=== PATIENT | male | born 1975 | race Caucasian/White ===

== ENCOUNTER 2021-03-23 00:32 | Day surgery (SDC) | payer OTHER, SELFPAY ==
[2021-03-16 10:34] VITALS: BMI 25.6
--- NOTE | 2021-03-16 10:40 | PC.NURSE ---
Report to the Outpatient Waiting Room, entrance under the green pavilion located off [facility], at time 0830 on date 03/23/21. OR Time: 1030. - You will be asked a series of questions to screen for COVID 19 for your protection. - A mask is required within the hospital. - No visitors are allowed at this time. Preoperative COVID Testing Requirements: No COVID Test needed if: (proof is required; if not received patient will have Rapid Test prior to entry) - Patient has received COVID Vaccine at least 14 days prior to procedure date or - Patient has positive COVID test result within last 90 days of surgery date. COVID Test needed if above criteria is not met Patients may have clear liquids (water, carbonated beverages, clear teas, apple juice) until 3 hours prior to surgery with a maximum of 20 ounces. - No food from midnight until time of surgery Take the following medications with a SIP of water the morning of surgery: NONE Medications to discontinue per physician: N/A Date to take last dose: N/A Please no make-up, nail azeri, hairspray, perfume, deodorant, or body powder the day of surgery. No jewelry (including any body piercings) or valuables the day of surgery, leave them at home. Please take a shower or bath the night before, or the morning of, surgery with an antibacterial soap. Wear comfortable, loose fitting clothing. - Jewelry must be removed prior to entering the operating room. Rings and piercings that are not removed may be cut off. - The hospital will not accept responsibility for valuables. - Please leave all valuables, including medications, at home the day of surgery. If you are going home after surgery, a licensed pile driver engineer must drive you home. - NO public transportation without another adult. - We recommend that an adult stay with you for 24 hours following discharge. - We also recommend that you do not drive, make important decision, drink alcoholic beverages, or take any drugs that were not prescribed by your health care provider for at least 24 hours after your discharge time. Follow any additional instructions given to you from your surgeon. Telephone instructions given to MARLA GOLDEN and asked if any additional questions and then verbalized understanding. Patient advised to call surgeon office or pre surgery nurse liaison [phone] if any additional questions.
[2021-03-23] VITALS (8 sets, daily range): BP systolic 119–150; BP diastolic 64–96; PULSE 71–91; RESP 14–18; TEMP 36.3–37.1; O2SAT 93–99
--- NOTE | 2021-03-23 07:08 | PM.SD2 ---
Same Day Admit/Disch: HPI History of Present Illness Chief complaint: Lt Ing Hernia Narrative: Vikram Finn is a 45 year old male who moved back to this area in May of 2020. This of course required a lot of moving of heavy boxes and furniture. Soon after the move, he started noticing a bulge in the left groin. This has been persistent and is occasionally painful. He was seen in the office and found to have a left inguinal hernia. He is taken to surgery now for left inguinal hernia repair. [facility] Past Medical History Medical History High cholesterol Surgical History Surgical History History of removal of cyst 2010, Anup History of surgery on wrist 2004, [facility], [facility] Family History Family History Father Liver failure Social History Social History Smoking status: Never smoker Tobacco type: cigarettes Alcohol intake: current Drinks per week: 4 Alcohol use details: Socially Substance use: never Substance use type: does not use Living arrangements: with family Spiritual care concerns: No Same Day Admit/Disch: Med Pre-admit Medications Home Medications Medication Instructions Recorded Confirmed Type hydrocodone-acetaminophen 1 - 2 tablet PO Q6H PRN #10 tablet 03/23/21 Rx ketorolac 10 mg PO Q6H 4 Days #16 tablet 03/23/21 Rx Exam Const: General: comfortable, no acute distress, alert and awake HENMT: Head: normocephalic and atraumatic Mouth: Yes Normal oral and palatal mucosa present Eyes: Conjunctivae: conjunctivae normal Pupils: Equal, round and reactive pupils present EOM: EOMs intact bilaterally Neck: Neck: normal visual inspection, no lymphadenopathy and nontender Resp: Effort & Inspection: normal respiratory effort Auscultation: clear to auscultation bilaterally Cardio: Rate: regular rate Rhythm: regular rhythm Heart sounds: no gallops, no murmurs and no rubs GI: Inspection: non-distended GI Palp: Yes Soft to palpation, No Tenderness to palpation present (GI), No Hepatomegaly present and No Splenomegaly present : Male General Exam: Yes hernia ( Reducible left inguinal hernia, rib bulges with cough. No right inguinal) Penis: Yes normal penis Scrotum: scrotum normal Testes: Testes normal Skin: Lesions: no lesions Rashes: no rashes Neuro: General: no focal motor deficits and CN's II-XI intact bilaterally Cranial nerves: Yes Equal, round and reactive pupils present, Yes Bilaterally intact EOM present, Yes facial symmetry and Yes Midline tongue present Speech: normal speech Motor exam (neuro): 5/5 motor strength present throughout and Motor abnormalities not present Extrem: General: no clubbing, cyanosis or edema and edema Psych: Affect: normal affect Thought process: Normal thought process present Insight: Good insight present (Psych) DS: Summary Time Spent with Patient Time attestation: Total time spent providing and/or coordinating discharge services: DS: Admitting Diagnosis Discharge Date 03/23/2021 Admitting Diagnosis reducible left inguinal hernia -plan is to proceed with repair as an outpatient most likely using mesh. The procedure the risks the benefits have been discussed. The usual recovery has been discussed. All questions were answered. He understands and agrees to go ahead. DS: Discharge Diagnosis Discharge Diagnosis (1) Inguinal hernia without obstruction or gangrene: Code(s): K40.90 - Unilateral inguinal hernia, without obstruction or gangrene, not specified as recurrent Status: Chronic Discharge Plan Discharge Patient Disposition: Home, Self-Care Discharge Instructions: 1. May shower the day after surgery over incision. 2. Call office for: -Wound increasingly painful or b
--- NOTE | 2021-03-23 07:11 | WPDHPUPDATE1 ---
History and Physical Update Update Date/Time: 03/23/21 07:11 History and Physical has been reviewed, including an updated exam of the patient. There are NO changes in the patient's condition. Risks, benefits, and alternatives have been discussed and questions answered. Patient agrees to proceed with procedure.
--- NOTE | 2021-03-23 07:30 | WPDANESEPPF ---
Anes - Initial Pre Proc Eval Procedure: Operation Date: 03/23/21 10:30 Proposed Procedures p Left Inguinal Hernia Repair - Blu Cox MD Date/Time: 03/23/21 07:30 Surgeon: Blu Cox MD Pre Op Diagnosis: Lt Ing Hernia Patient Data Age: 45 Gender: M Height: 1.85 m Weight: 88 kg Allergies Allergy/AdvReac Type Severity Reaction Status Date / Time No Known Allergies Allergy Verified 03/16/21 10:33 Home Medications Medication Instructions Recorded Confirmed Type No Home Medications 01/31/21 03/16/21 History Patient hx anesthesia problems: none Family hx anesthesia problems: none Results Review: All pre-operative results and documents have been reviewed as part of the pre-operative evaluation. [facility] Past Medical History Medical History High cholesterol Surgical History Surgical History History of removal of cyst 2010, Anup History of surgery [facility] wrist [facility], [facility] Family History Family History Father Liver failure Social History Social History Smoking status: Never smoker Tobacco type: cigarettes Alcohol intake: current Drinks per week: 4 Alcohol use details: Socially Substance use: never Substance use type: does not use Living arrangements: with family Spiritual care concerns: No Anes - Eval Final PreProcedure Day of Procedure 03/23/21 07:30 Patient weight: overweight Heart: regular rate and rhythm Lungs: clear to auscultation and normal air movement Airway: Mallampati scale class II Neurological: alert and oriented Last oral intake: >/= 8 hours ASA classification: II Emergent: no Anesthetic plan: proceed Anesthesia type and monitoring: general GIVS and standard monitoring Results Review: All pre-operative results and documents have been reviewed as part of the pre-operative evaluation. Informed Consent: The patient's anesthetic plan and its attendant risks and benefits were discussed with the patient/family/POA. Questions were solicited and answers provided to the satisfaction of the patient/family/POA.
[2021-03-23] MEDS: ACETAMINOPHEN 500 MG TABLET 1000 MG PO (09:19)
[2021-03-23] MEDS: KETOROLAC 15 MG/ML VIAL (*BKC) IV PUSH (09:19)
[2021-03-23] MEDS: LACTATED RINGERS 1,000 ML 30 ML IV CONT ×2 (09:21→11:53)
[2021-03-23] MEDS: ceFAZolin 2 GM/D5W 50 ML 2 GM/50 ML BAG IVPB (10:27)
--- NOTE | 2021-03-23 10:29 | P.OP_ITS ---
Procedure Note - Detailed Date of Procedure 03/23/21 Pre-op Diagnosis Lt Ing Hernia Post-op Diagnosis same Procedure Performed Left inguinal hernia repair with mesh Surgeon Blu Cox MD Staffing Branch Manager Luna CORLEY Anesthesia MAC and local (0.5% Marcaine with epinephrine, Xaracoll) Indications Patient noticed discomfort and a bulge in the left groin after moving to a new residence. He was seen in the office and found to have a reducible left inguinal hernia. He is taken to surgery now for repair. Findings Indirect left inguinal hernia Description of Procedure Patient was taken to surgery and IV sedation was administered. Prep and drape was carried out. The proposed incision was marked on the skin. Local was infiltrated into the skin and the deeper subcutaneous tissues. Incision was then made dissection was carried down through the subcutaneous. Crossing veins were cauterized and divided. Dissection continued through Verena's fascia and down to the external oblique aponeurosis. The aponeurosis was exposed as was the external ring. Additional local was infiltrated deep to the aponeurosis in the area of the spermatic cord and inguinal canal contents. The external oblique aponeurosis was then opened laterally and extended medially through the external ring. Care was taken to avoid injury to the ileoinguinal nerve which was left attached to the spermatic cord throughout the surgery. The leaves of the aponeurosis were carefully freed from the inguinal canal contents. The cord was then mobilized medially on a Midnight drain. The cord was then dissected back toward the internal ring mobilizing it completely. Dissection was then carried out near the internal ring in the anteromedial aspect of the spermatic cord. Hernia sac was found and was dissected free from the spermatic cord. The hernia sac was dissected circumferentially. It was dissected back to a high dissection. It was dunked into the retroperitoneum. This was an indirect herni a. A large PerFix Light plug was used. A couple of pedals were removed before placement. The plug was placed and sutured to the edges of the transversalis fascia with 3-0 Vicryl suture. The patch was cut to the appropriate size and placed over the inguinal canal floor. The lateral leaves were passed beyond the cord. I then placed Xaracoll over the patch. The cord was laid over the Xaracoll. The external oblique was closed with interrupted 3-0 Vicryl suture. More Xaracoll was placed over the external oblique. Verena's fascia was closed with interrupted 3-0 Vicryl suture. The rest of the Xaracoll was then placed in the subcutaneous. The skin was loosely approximated with 4-0 Vicryl subcuticular interrupted skin suture. Finally the skin was closed with running 4-0 Monocryl skin suture. The wound was dressed with Exofin surgical adhesive. The patient was awakened and taken to recovery in good condition. Sponge and needle counts were correct x2. Implants Large PerFix Light plug and patch, Xaracoll Estimated Blood Loss -5 Drains No Packing No Pathology none sent Complications No immediate complications Condition stable Disposition same day
[2021-03-23] MEDS: BUPIVACAINE/EPINEPHRINE 0.5% 30 ML VIAL 60 ML INFILTRATE (11:43)
--- NOTE | 2021-03-23 16:37 | SUR.PHASEII ---
PT URINATED AT 1300. NO ISSUE AND DISCHARGED HOME.
== END 2021-03-23 13:40 | disposition home or self-care (01) ==
PROVIDERS: Visit Provider Surgery
PROC: (CPT 49505; principal; 2021-03-23 10:30)
DX: K40.90 Unilateral inguinal hernia, without obstruction or gangrene, not specified as recurrent (principal)
CPT/HCPCS: 49505; A9270; C1781; J0690; J1100; J1170; J1885; J2250; J2405; J2704; J3010; J7120

== ENCOUNTER 2021-10-21 00:34 | Day surgery (SDC) | payer OTHER, SELFPAY ==
[2021-10-10 14:54] VITALS: BMI 24.1
[2021-10-21 06:45] VITALS: BP 148/92; PULSE 84; RESP 16; TEMP 36.3; O2SAT 100
[2021-10-21] MEDS: LACTATED RINGERS 1,000 ML 150 ML IV CONT (07:00)
[2021-10-21 07:18] LABS: Glucose Point of Care 157 mg/dl (65-105)
--- NOTE | 2021-10-21 07:50 | PM.HPGS ---
History of Present Illness History of Present Illness Consent: Risks, benefits, and alternatives have been discussed and questions answered. Patient agrees to proceed with procedure. Chief complaint: neoplasm screening Narrative: Vikram Finn is a 46 year old male here for first screening colonoscopy Review of Systems Constitutional: Constitutional: Denies headache(s) and Denies weakness Eyes: Eyes: Denies blurry vision ENT: Reports Normal hearing present, Denies headache(s) and Denies neck pain Cardiovascular: Cardiovascular: Denies chest pain and Denies dyspnea Respiratory: Respiratory: Denies dyspnea Gastrointestinal: Gastrointestinal: Reports no additional gastrointestinal complaints Genitourinary: Genitourinary: Denies dysuria Musculoskeletal: Musculoskeletal: Denies neck pain Integumentary/Breasts: Skin/Breast: Denies dry skin Neurologic: Reports Normal hearing present, Denies headache(s) and Denies weakness Psychiatric: Psychiatric: Denies anxiety Endocrine: Endocrine: Denies change in body appearance Hematologic/Lymphatic: Hematologic/Lymphatic: Denies easy bleeding Allergic/Immunologic: Allergic/Immunologic: Denies urticaria [facility] Past Medical History Medical History (Updated 10/21/21 @ 07:50 by Adebayo Olmos MD) Colon cancer screening High cholesterol Surgical History Surgical History (Updated 04/25/21 @ 14:30 by Esha Dangelo) H/O inguinal hernia repair left inguinal hernia repair w/mesh 03/23/21 History of removal of cyst 2010, Anup History of surgery on wrist 2004, [facility] Family History Family History Father Liver failure Social History Social History Smoking status: Never smoker Tobacco type: cigarettes Alcohol intake: current Drinks per week: 4 Alcohol use details: Socially Substance use: never Substance use type: does not use Living arrangements: with family Spiritual care concerns: No Meds Home Medications and Allergies Home Medications Medication Instructions Recorded Confirmed Type sodium sul 1.479 gram-potas ch See Rx Instructions PO .COMPLEX 07/13/21 10/10/21 Rx 0.188 gram-magnes sul 0.225 gram #24 tabs tablet (Sutab) metformin 500 mg tablet 500 mg PO DAILY 10/10/21 10/10/21 History rosuvastatin 40 mg tablet 40 mg PO DAILY 10/10/21 10/10/21 History Allergies Allergy/AdvReac Type Severity Reaction Status Date / Time No Known Allergies Allergy Verified 04/25/21 14:28 Vital Signs Vital Signs - 24 hr 10/21/21 06:45 Temperature 97.4 F L Pulse Rate 84 Respiratory Rate 16 Blood Pressure 148/92 H Pulse Oximetry 100 Oxygen Delivery Room Air Exam Const: General: comfortable and no acute distress HENMT: General nose exam: Normal nares present Eyes: General: appearance normal, both eyes and all related structures Neck: Neck: no JVD Resp: Auscultation: clear to auscultation bilaterally Cardio: Rate: regular rate Rhythm: regular rhythm GI: Inspection: non-distended GI Palp: Yes Soft to palpation Skin: General skin exam: normal color Neuro: General: gait normal Speech: normal speech Extrem: General: normal to inspection Psych: Mental Status: mental status grossly normal Assessment and Plan Assessment and plan (1) Colon cancer screening: Code(s): Z12.11 - Encounter for screening for malignant neoplasm of colon Status: Acute Assessment and Plan: colonoscopy
--- NOTE | 2021-10-21 07:52 | P.PNAN_ITS ---
Anes - Initial Pre Proc Eval Procedure: Operation Date: 10/21/21 08:00 Proposed Procedures p Screening Colonoscopy - Adebayo Olmos MD Date/Time: 10/21/21 07:52 Surgeon: Adebayo Olmos MD Pre Op Diagnosis: neoplasm screening Patient Data Age: 46 Gender: M Height: 1.85 m Weight: 83 kg Last Vital Signs Temp 97.4 F L 10/21/21 06:45 Pulse 84 10/21/21 06:45 Resp 16 10/21/21 06:45 BP 148/92 H 10/21/21 06:45 Pulse Ox 100 10/21/21 06:45 O2 Del Method Room Air 10/21/21 06:45 Allergies Allergy/AdvReac Type Severity Reaction Status Date / Time No Known Allergies Allergy Verified 04/25/21 14:28 Home Medications Medication Instructions Recorded Confirmed Type sodium sul 1.479 gram-potas ch See Rx Instructions PO .COMPLEX 07/13/21 10/10/21 Rx 0.188 gram-magnes sul 0.225 gram #24 tabs tablet (Sutab) metformin 500 mg tablet 500 mg PO DAILY 10/10/21 10/10/21 History rosuvastatin 40 mg tablet 40 mg PO DAILY 10/10/21 10/10/21 History Laboratory Tests 10/21/21 07:04 POC Capillary Glucose 157 mg/dl H mg/dl (65-105) Patient hx anesthesia problems: none Family hx anesthesia problems: none Results Review: All pre-operative results and documents have been reviewed as part of the pre- operative evaluation. [facility] Past Medical History Medical History (Updated 10/21/21 @ 07:50 by Adebayo Olmos MD) Colon cancer screening High cholesterol Surgical History Surgical History (Updated 04/25/21 @ 14:30 by Esha Dangelo) H/O inguinal hernia repair left inguinal hernia repair w/mesh 03/23/21 History of removal of cyst 2010, Anup History of surgery on wrist 2004, [facility] Family History Family History Father Liver failure Social History Social History Smoking status: Never smoker Tobacco type: cigarettes Alcohol intake: current Drinks per week: 4 Alcohol use details: Socially Substance use: never Substance use type: does not use Living arrangements: with family Spiritual care concerns: No Anes - Eval Final PreProcedure Day of Procedure 10/21/21 07:52 Patient weight: normal Heart: regular rate and rhythm Lungs: clear to auscultation Airway: Mallampati scale class II Neurological: alert and oriented Last oral intake: >/= 8 hours ASA classification: II Emergent: no Anesthetic plan: proceed Anesthesia type and monitoring: general GIVS and standard monitoring Results Review: All pre-operative results and documents have been reviewed as part of the pre- operative evaluation. Informed Consent: The patient's anesthetic plan and its attendant risks and benefits were discussed with the patient/family/POA. Questions were solicited and answers provided to the satisfaction of the patient/family/POA.
[2021-10-21 08:08] VITALS: BP 127/88; PULSE 75; RESP 14; O2SAT 99
[2021-10-21 08:18] VITALS: BP 136/94; PULSE 60; RESP 13; O2SAT 99
[2021-10-21 08:28] VITALS: BP 140/90; PULSE 70; RESP 16; O2SAT 99
== END 2021-10-21 08:35 | disposition home or self-care (01) ==
PROVIDERS: PCP Family Medicine; Visit Provider Internal Medicine Gastroenterology
PROC: 0DJD8ZZ Inspection of Lower Intestinal Tract, Via Natural or Artificial Opening Endoscopic (ICD-10-PCS; CPT 45378; principal; 2021-10-21 08:00)
DX: Z12.11 Encounter for screening for malignant neoplasm of colon (principal); E78.00 Pure hypercholesterolemia, unspecified; K64.8 Other hemorrhoids
CPT/HCPCS: 45378; 82948; J2704; J7120

== ENCOUNTER 2021-12-19 09:15 | Outpatient (RCR) | payer OTHER, SELFPAY ==
[2021-10-18 14:05] VITALS: BMI 24.1
[2021-10-18 14:48] VITALS: BMI 24.1
== END 2022-01-02 09:53 | disposition home or self-care (01) ==
LOC: ANHDMC 09:15
PROVIDERS: PCP Family Medicine; Visit Provider Nurse Practitioner
DX: E11.65 Type 2 diabetes mellitus with hyperglycemia (principal); Z71.3 Dietary counseling and surveillance; Z71.89 Other specified counseling
CPT/HCPCS: 97802; G0108

== ENCOUNTER 2022-02-21 12:55 | Outpatient (RCR) | payer OTHER, SELFPAY | END 2022-02-21 14:23 | disposition home or self-care (01) | LOC: ANHDMC 12:55 | PROVIDERS: PCP Family Medicine; Visit Provider Nurse Practitioner | DX: E11.65 Type 2 diabetes mellitus with hyperglycemia (principal); Z71.89 Other specified counseling | CPT/HCPCS: G0108 ==

== ENCOUNTER 2024-07-27 07:24 | Emergency (ER) | payer OTHER, SELFPAY ==
--- NOTE | ~2024-07-27 | XR_ITS ---
Left wrist Technique: PA, oblique, lateral, and ulnar deviation views were obtained. Clinical History: Injury Findings: Status post prior ORIF for scaphoid fracture. There is acute intra-articular fracture of th e radial styloid process, essentially nondisplaced. No other fracture identified. There is mild degen erative change at the first CMC joint and triscaphe joint. Soft tissues are unremarkable. Impression: Acute, essentially nondisplaced intra-articular fracture of the radial styloid process. Prior scaphoid ORIF. Mild degenerative changes, as above. Reviewed, dictated and finalized at location . Impression: Acute, essentially nondisplaced intra-articular fracture of the radial styloid process. Prior scaphoid ORIF. Mild degenerative changes, as above.
[2024-07-27 07:27] VITALS: BP 159/96; PULSE 82; RESP 17; TEMP 36.4; O2SAT 97
--- OUTSIDE RECORDS SUMMARY | 2024-07-27 07:27 | XMS_ITS | Data Portability ---
Author Organization [facility], Main Office Address [address] [place] [address] Assessment No assessment recorded. Plan of Treatment Reminders Order Date Submit Date Provider Last Modified By Organization Details Last Modified Time Details Appointments Physical/ Annual Wellness 30 2024 07:30A Radha Wren NP Not available Not available Not available Lab lipid panel, serum 2023 024 [email or web address] [facility], [address], [address], [place], [address], 10/11/2023 08:16:09 HbA1c (hemoglob in A1c), blood 2023 024 [email or web address] [facility], [address], [place], [address], 10/11/2023 08:16:09 CMP, serum or plasma 2023 024 [email or web address] [facility], [address], [place], [address], 10/11/2023 08:16:09 TSH, serum or plasma 2023 024 [email or web address] [facility], [address], [place], [address], 10/11/2023 08:16:10 CBC w/ auto diff 2023 024 [email or web address] [facility], [address], [place], [address], 10/11/2023 08:16:10 PSA, serum or plasma [email or web address], [address], [address], [place], [address], 10/11/2023 08:16:10 testoster one, free + total, serum [email or web address], [address], [address], [place], [address], 10/11/2023 08:16:10 HbA1c (hemoglob in A1c), blood 2022 023 [facility], [address], [address], [place], [address], 10/10/2022 15:09:18 CMP, serum or plasma 2022 023 [facility] [address], [address], [place], [address], 10/10/2022 15:09:15 microalbu min/creat inine, mass ratio, urine 2022 023 [facility], [facility] [address], [address], [place], [address], 07/21/2022 23:43:28 microalbu min/creat inine, mass ratio, urine 2022 023 [facility], [facility] [address], [address], [place], [address], 07/19/2022 14:55:08 JESSICA (antinucl ear antibodie s) screen, serum 2022 023 [facility], [facility] [address], [place], [address], 07/21/2022 23:43:30 rf (rheumato id factor), serum 2022 023 [facility], [address], [address], [place], [address], 07/21/2022 23:43:29 lipid panel, serum 2022 023 [facility], [address], [address], [place], [address], 10/10/2022 15:09:13 TSH + free T4, serum 2022 023 [facility], [address], [address], [place], [address], 10/10/2022 15:09:17 Referral cardiolog ist referral - Please call patient to schedule an appointme nt. Thank you. [email or web address] [place] [address] Heart And Vascular Referral Fax Line, [address], [place] [address] [address], [place], [address], 12/12/2023 09:12:30 Procedures None recorded. Surgeries None recorded. Imaging None recorded. Medication Orders metformin ER 500 mg tablet,ex tended release 24 hr 2024 025 [facility] [address] [facility], [address] [place], [address], 07/14/2024 08:46:00 Vascepa 1 gram capsule 2024 025 [facility] [address] In [facility], [address] [place], [address], 07/14/2024 08:46:02 rosuvasta tin 40 mg tablet 2024 025 [facility] [address] In [facility] [address] [place], [address], 07/14/2024 08:46:01 fenofibra te 54 mg tablet 2024 025 [facility] [address] In [facility] [address] [facility], [place], [address], 07/14/2024 08:46:01 OneTouch Ultra Test strips 2024 025 [facility]LEY[facility] ALVAREZ [address] In [facility], [address] [place], [address], 07/14/2024 08:46:00 sertralin e 25 mg tablet 2024 025 [facility] KIM [address] In [facility], [address] [place], [address], 07/14/2024 08:46:01 metformin ER 500 mg tablet,ex tended release 24 hr 2023 024 [facility]VARE[facility] [address], [address], 11/14/2023 11:23:57 fenofibra te 54 mg tablet 2023 024 [facility] K[facility] [address] In [facility], [facility] [place], [address], 11/14/2023 11:23:57 rosuvasta tin 40 mg tablet 2022 023 [facility]VARE[facility] [address] In [facility], [address] [facility], [place], [address], 10/20/2022 14:11:32 Vascepa 1 gram capsule 2022 023 [facility] K[facility] [address] In [facility], [address] [place], [address], 10/20/2022 14:11:32 metformin ER 500 mg tablet,ex tended release 24 hr 2022 023 [facility] KIM [address] In [facility], [address] [place], [address], 10/20/2022 14:11:32 Patient TargetsNo targets recorded. Patient InstructionsNo instructions recorded. Reason for Referral National Account Executive Referral for Hy pertriglyceridemia hypertriglyceridemia Please call patient to schedule an appointment. Thank you. Referring Physician: Juan Alberto Banks, Family Medicine, Encounter Date: 11/14/2023 Results Created Date Observation Date Name Description Value Unit Range Abnormal Flag Note LastModifiedBy Organization Detail LastModifiedTime 06/07/19 23 06/13/2022 COMPR EHENS REGINO METAB OLIC PANEL glucose 113 mg/dL 65-99 high Fasti ng refer ence inter verito For someo ne witho ut known diabe pineda, a gluco se value betwe en 100 and 125 mg/dL is consi stent with predi abete s and shoul d be confi rmed with a follo w-up test. Not Available [address], [address], 06/14/2022 00:45:21 06/07/19 23 06/13/2022 COMPR EHENS REGINO METAB OLIC PANEL urea nitrogen (BUN) 12 mg/dL 7-25 normal Not Available [facility] [address], [address], 06/14/2022 00:45:21 06/07/19 23 06/13/2022 COMPR EHENS REGINO METAB OLIC PANEL creatinine 0.81 mg/dL 0.60-1 .29 normal Not Available [address], [address], 06/14/2022 00:45:21 06/07/19 23 06/13/2022 COMPR EHENS REGINO METAB OLIC PANEL eGFR 109 mL/mi n/1.7 3m2 > or = 60 normal The eGFR is based on the CKD-E PI 2020 equat ion. To calcu late the new eGFR from a previ ous Creat inine or Cysta glenn C resul t, go to https ://daniel [email or web address] ogden/meri murphy s/ kdoqi /gfr% 5Fcal culat or Not Available [facility] [address] [address] [place], [address], 06/14/2022 00:45:21 06/07/19 23 06/13/2022 COMPR EHENS REGINO METAB OLIC PANEL BUN/creatini ne ratio NOT APPLIC ABLE (calc ) 6-22 Not Available [address], [address], 06/14/2022 00:45:21 06/07/19 23 06/13/2022 COMPR EHENS REGINO METAB OLIC PANEL sodium 136 mmol/ L 135-14 6 normal Not Available [address], [address], 06/14/2022 00:45:21 06/07/19 23 06/13/2022 COMPR EHENS REGINO METAB OLIC PANEL potassium 4.1 mmol/ L 3.5-5. 3 normal Not Available [address], [address], 06/14/2022 00:45:21 06/07/19 23 06/13/2022 COMPR EHENS REGINO METAB OLIC PANEL chloride 100 mmol/ L 98-110 normal Not Available [address], [address], 06/14/2022 00:45:21 06/07/19 23 06/13/2022 COMPR EHENS REGINO METAB OLIC PANEL carbon dioxide 20 mmol/ L 20-32 normal Not Available [address], [address], 06/14/2022 00:45:21 06/07/19 23 06/13/2022 COMPR EHENS REGINO METAB OLIC PANEL calcium 9.7 mg/dL 8.6-10 .3 normal Not Available [address], [address], 06/14/2022 00:45:21 06/07/19 23 06/13/2022 COMPR EHENS REGINO METAB OLIC PANEL protein, total 7.5 g/dL 6.1-8. 1 normal Not Available [address], [address], 06/14/2022 00:45:21 06/07/19 23 06/13/2022 COMPR EHENS REGINO METAB OLIC PANEL albumin 5.1 g/dL 3.6-5. 1 normal Not Available [address], [address], 06/14/2022 00:45:21 06/07/19 23 06/13/2022 COMPR EHENS REGINO METAB OLIC PANEL globulin 2.4 g/dL_ (calc ) 1.9-3. 7 normal Not Available [address], [address], 06/14/2022 00:45:21 06/07/19 23 06/13/2022 COMPR EHENS REGINO METAB OLIC PANEL albumin/glob ulin ratio 2.1 (calc ) 1.0-2. 5 normal Not Available [address], [address], 06/14/2022 00:45:21 06/07/19 23 06/13/2022 COMPR EHENS REGINO METAB OLIC PANEL bilirubin, total 0.8 mg/dL 0.2-1. 2 normal Not Available [address], [address], 06/14/2022 00:45:21 06/07/19 23 06/13/2022 COMPR EHENS REGINO METAB OLIC PANEL alkaline phosphatase 65 U/L 36-130 normal Not Available [facility] [address], [address], 06/14/2022 00:45:21 06/07/19 23 06/13/2022 COMPR EHENS REGINO METAB OLIC PANEL AST 31 U/L 10-40 normal Not Available [address], [address], 06/14/2022 00:45:21 06/07/19 23 06/13/2022 COMPR EHENS REGINO METAB OLIC PANEL ALT 47 U/L 9-46 high Not Available [address], [address], 06/14/2022 00:45:21 06/07/19 23 06/13/2022 ALBUM IN, RANDO M URINE W/CRE ATINI NE creatinine, random urine 24 mg/dL 20-320 normal Not Available [address], [address], 06/14/2022 00:45:22 06/07/19 23 06/13/2022 ALBUM IN, RANDO M URINE W/CRE ATINI NE albumin, urine 6.8 mg/dL see note: normal Refer ence Range : Refer ence Range Not estab lishe d Not Available [address], [address], 06/14/2022 00:45:22 06/07/19 23 06/13/2022 ALBUM IN, RANDO M URINE W/CRE ATINI NE albumin/crea tinine ratio, random urine 283 mcg/m g_cre at <30 high The ADA defin es abnor malit ies in album in excre tion as follo ws: Album inuri a Categ ory Resul t (mcg/ mg creat inine ) Jammie l to Mildl y incre ased <30 Moder ately incre ased 30-29 9 Sever rebeca incre ased > OR = 300 The ADA recom mends that at least two of three speci mens colle cted withi n a 3-6 month perio d be abnor mal befor e consi guillermo g a patie nt to be withi n a diagn ostic categ ory. Not Available [address], [address], 06/14/2022 00:45:22 06/07/19 23 06/13/2022 TSH+F REE T4 TSH 1.50 mIU/L 0.40-4 .50 normal Not Available [facility] [address] [address] [place], [address], 06/14/2022 00:45:22 06/07/1906/13/2022 TSH+F REE T4 T4, free 1.0 NG/dL 0.8-1. 8 normal Not Available [facility] [address] [address] [place], [address], 06/14/2022 00:45:22 06/07/1906/13/2022 HEMOG LOBIN A1C hemoglobin A1C 6.0 %_of_ total _HGB <5.7 high For someo ne witho ut known diabe pineda, a hemog lobin A1c value betwe en 5.7% and 6.4% is consi stent with predi abete s and shoul d be confi rmed with a follo w-up test. For someo ne with known diabe pineda, a value <7% indic ates that their diabe pineda is well contr olled . A1c targe ts shoul d be indiv idual ized based on durat ion of diabe pineda, age, comor bid condi tions , and other consi derat ions. This assay resul t is consi stent with an incre ased risk of diabe pineda. Curre ntly, no conse nsus exist s regar ding use of hemog lobin A1c for diagn osis of diabe pineda for child ozzy. Not Available [facility] [address] [place], [address], 06/14/2022 00:45:23 06/07/1906/13/2022 LIPID PANEL W/REF L DIREC T LDL, CARDI O IQ(R) cholesterol, total 163 mg/dL <200 Not Available [facility] [address] [place], [address], 06/14/2022 00:45:23 04/25/20 23 06/13/2022 LIPID PANEL W/REF L DIREC T LDL, CARDI O IQ(R) HDL cholesterol 48 mg/dL >39 Not Available [facility] [address] [place], [address], 06/14/2022 00:45:23 06/07/19 23 06/13/2022 LIPID PANEL W/REF L DIREC T LDL, CARDI O IQ(R) triglyceride s 316 mg/dL <150 high If a non fasti ng speci men was colle cted, consi tabby repea t trigl yceri de testi ng on a fasti ng speci men if clini justin indic ated. Keagan perez et al. J of Clin. Lipid ol. 215; 9:129 -169. Not Available [facility] [address] [address], [place], [address], 06/14/2022 00:45:23 06/07/19 23 06/13/2022 LIPID PANEL W/REF L DIREC T LDL, CARDI O IQ(R) LDL-choleste rol 77 mg/dL _(pat c) <100 Roseann able range <100 mg/dL for prima ry preve ntion ; <70 mg/dL for patie nts with CHD or diabe tic patie nts with >= 2 CHD risk facto rs. LDL-C is now calcu lated using the [employer] calcu latio n, which is a valid ated novel metho d provi ding andrzej r accur acy than the Fried lupe equat ion in the estim ation of LDL-C . Shaista n SS et al. TAMI. 2013; 310(1 9): 2060- 2067 (http ://ed Neu Industriesati on.[employer]/f aq/FA Q164) LDL-C is now calcu lated using the [employer] calcu latio n, which is a valid ated novel metho d provi ding andrzej r accur acy than the Fried lupe equat ion in the estim ation of LDL-C . Shaista n SS et al. TAMI. 2013; 310(1 9): 2060- 2067 (http ://ed ucati on.Qu Marcie canaless. com/f aq/FA Q164) Not Available [address] [address] [place], [address], 06/14/2022 00:45:23 06/07/1906/13/2022 LIPID PANEL W/REF L DIREC T LDL, CARDI O IQ(R) chol/HDLC ratio 3.4 calc <3.6 Not Available [address] [address] [facility] [place], [address], 06/14/2022 00:45:23 06/07/19 23 06/13/2022 LIPID PANEL W/REF L DIREC T LDL, CARDI O IQ(R) non HDL cholesterol 115 mg/dL _(pat c) <130 For patie nts with diabe pineda plus 1 major ASCVD risk facto r, treat ing to a non-H DL-C goal of <100 mg/dL (LDL- C of <70 mg/dL ) is consi dered a thera peuti c optio n. For patie nts with diabe pineda plus 1 major ASCVD risk facto r, treat ing to a non-H DL-C goal of <100 mg/dL (LDL- C of <70 mg/dL ) is consi dered a thera peuti c optio n. Not Available [address] [address] [place], [address], 06/14/2022 00:45:23 07/12/19 23 07/21/2022 ALBUM IN, RANDO M URINE W/CRE ATINI NE creatinine, random urine 94 mg/dL 20-320 normal Not Available [address] [address] [facility] [place], [address], 07/21/2022 23:43:28 07/12/1907/21/2022 ALBUM IN, RANDO M URINE W/CRE ATINI NE albumin, urine 12.3 mg/dL see note: normal Refer ence Range : Refer ence Range Not estab lishe d Not Available [address] [address] [place], [address], 07/21/2022 23:43:28 07/12/19 23 07/21/2022 ALBUM IN, RANDO M URINE W/CRE ATINI NE albumin/crea tinine ratio, random urine 131 mcg/m g_cre at <30 high The ADA defin es abnor malit ies in album in excre tion as follo ws: Album inuri a Categ ory Resul t (mcg/ mg creat inine ) Jammie l to Mildl y incre ased <30 Moder ately incre ased 30-29 9 Sever rebeca incre ased > OR = 300 The ADA recom mends that at least two of three speci mens colle cted withi n a 3-6 month perio d be abnor mal befor e consi guillermo g a patie nt to be withi n a diagn ostic categ ory. Not Available [facility] [address], [address], 07/21/2022 23:43:28 07/12/19 23 07/21/2022 RHEUM ATOID ARTHR ITIS DIAGN OSTIC IDENT RA(R) PANEL 2 rheumatoid factor <14 IU/mL <14 Not Available [facility] [address], [address], 07/21/2022 23:43:29 07/12/19 23 07/21/2022 RHEUM ATOID ARTHR ITIS DIAGN OSTIC IDENT RA(R) PANEL 2 cyclic citrullinate d peptide (ccp) Ab (IgG) <16 units Refer ence Range : NEGAT REGINO: <20 WEAK POSIT REGINO: 20-39 MODER ATE POSIT REGINO: 40-59 STRON G POSIT REGINO >59 Not Available [facility] [place] - [address], [address], 07/21/2022 23:43:29 07/12/19 23 07/21/2022 RHEUM ATOID ARTHR ITIS DIAGN OSTIC IDENT RA(R) PANEL 2 14.3.3 ETA protein <0.2 NG/mL <0.2 The 14-3- 3eta prote in is a marke r of synov ial infla mmati on that is relea sed into synov ial fluid and perip heral blood in rheum atoid arthr itis (RA) and erosi ve psori atic arthr itis. One in five RF and CCP seron egati ve early stage RA patie nts is found to be posit regino for 14-3- 3eta prote in. Patie nts with activ e joint RA disea se have highe r value s of 14-3- 3eta prote in than those with inact regino RA or psori asis witho ut arthr itis. 14-3- 3eta prote in has a 93% speci ficit y in patie nts with RA. Value s > or = 0.2 ng/mL are eleva musa and indic ative of RA disea se or erosi ve psori atic arthr itis. Value s >0.50 ng/mL are assoc iated with more aggre ssive RA disea se and selwyn r outco mes. Unlik e RF and CCP, 14-3- 3eta prote in is a thera peuti justin modif iable marke r to monit or respo nse to thera py. A decre ase in 14-3- 3eta prote in in respo nse to DMARD s (dise ase-m odify ing antir heuma tic drugs ) and anti- TNF (tumo r necro sis facto r) drugs indic ates andrzej r clini pat outco mes; an incre ase is assoc iated with worse outco mes despi te appar ent clini pat remis brady. For [facility] er infor elie tim e visit : http: //www .ques tdiag nosti cs.co m/pineda tcent er/te stgui de.ac tion? dc=TS -RmAr thPnl This test was devel oped and its luis tical perfo rmanc e peyman cteri stics have been deter mined by [facility] [place] [employer] . It has not been clear ed or appro heydi by FDA. This assay has been valid ated pursu ant to the CLIA regul ation s and is used for clini pat purpo ses. Not Available [address] [address] [place], [address], 07/21/2022 23:43:29 07/12/19 23 07/21/2022 JESSICA MULTI PLEX W/REF GERRY 11 AB CASCA DE anachoice(R) screen POSITI VE negati ve abnormal A posit regino JESSICA, Multi plex refle xes to the 3 Tiere d Multi plex 11 Antib roberto [place]. Testi ng in the [place] stops at the first posit regino resul t and does not precl ude addit ional posit regino resul ts. Fur er labor atory testi ng may be consi dered if clini justin indic ated. For addit ional infor meeta baldwin e refer to http: //[facility] domenic iqbal.Que stDia gnost ics.c om/fa q/FAQ 177 (This link is being provi ded for infor elie norris/ educa perez l purpo ses only. ) Not Available [address] [address] [place], [address], 07/21/2022 23:43:30 07/12/19 23 07/21/2022 TIER 1 DNA (ds) antibody 12 IU/mL high IU/mL Inter preta tion < or = 4 Negat regino 5-9 Indet ermin ate > or = 10 Posit regino Not Available [facility] [address] [address] [place], [address], 07/21/2022 23:43:31 07/12/19 23 07/21/2022 TIER 1 sm antibody <1.0 NEG ai <1.0 neg normal Not Available [facility] [address] [address] [place], [address], 07/21/2022 23:43:31 07/12/19 23 07/21/2022 TIER 1 sm/transport medic antibody <1.0 NEG ai <1.0 neg normal Not Available [facility] [address] [address] [place], [address], 07/21/2022 23:43:31 07/12/19 23 07/21/2022 TIER 1 transport medic antibody <1.0 NEG ai <1.0 neg normal Not Available [facility] [address] [facility] [place], [address], 07/21/2022 23:43:31 07/12/19 23 07/21/2022 TIER 1 chromatin (nucleosomal ) antibody <1.0 NEG ai <1.0 neg normal ANTIB ROBERTO PREVA LENCE IN TIER 1 Doubl e stran ded DNA (dsDN A) antib odies are prese nt in 57% to 62% syste kiesha lupus eryth emato victoriano (SLE) , 10% to 43% polym yosit is, 11% to 20% Sjogr en's syndr ome, 8% syste kiesha scler osis (scle roder ma) and 0% to 8% mixed conne ctive tissu e disea se (MCTD ). Chrom atin antib roberto is prese nt in >80% MCTD, 37% to 73% SLE, 14% syste kiesha scler osis, 12% Sjogr en's syndr ome and 8% polym yosit is. Ribon ucleo prote in (SATELLITE DISH REPAIRER) antib odies are to SATELLITE DISH REPAIRER A and/o r SATELLITE DISH REPAIRER 68kD prote ins; antib odies to one or both are prese nt in >80% MCTD, 22% to 48% SLE, 14% syste kiesha scler osis, 12% Sjogr en's and 8% polym yosit is. Sm/RN P antib odies are direc musa to epito pes forme d in a compl ex of Sm and SATELLITE DISH REPAIRER; antib odies to the Sm/RN P compl ex are prese nt in 54% to 94% MCTD, 30% SLE, 4% syste kiesha scler osis, and 9% Sjogr en's and polym yosit is. Sm antib roberto is prese nt in 20% to 30% SLE, 8% MCTD, 10% polym yosit is, 0% syste kiesha scler osis and 4% Sjogr en's syndr ome. Doubl e stran ded DNA, Chrom atin, Ribon ucleo prote in, Sm/RN P compl ex and Sm antib odies are prese nt in <2% of jammie l blood donor s. The [place] does not rule out autoi mmune disea se peyman cteri zed by other autoa ntibo dy speci ficit ies such as rheum atoid arthr itis, autoi mmune hepat itis, prima ry bilia ry cirrh osis, autoi mmune thyro iditi s, Lyubov on's disea se, perni cious anemi a, autoi mmune neuro pathi es, vascu litis , derrick c disea se and bullo us disea se. Pleas e conta ct your local [facility] at[facility] if you are inter ested in addit ional testi ng. Not Available [facility] [address] [address] [address] , [place], [address], 07/21/2022 23:43:31 07/12/19 23 07/21/2022 INTER PRETA TION interpretati on dsDNA antib roberto is frequ ently posit regino in patie nts with syste kiesha lupus eryth emato victoriano; howev er, it may be posit regino in a lesse r perce ntage of patie nts with rheum atoid arthr itis and other conne ctive tissu e disea se. A posit regino resul t at this stage of testi ng stops furth er testi ng, and does not precl ude addit ional posit regino antib odies . Clini pat corre latio n is requi red to asses s the need for testi ng addit ional luis pineda. Not Available [facility] [address] [address] [address], [place], [address], 07/21/2022 23:43:32 10/10/19 23 10/10/2022 LIPID PANEL WITH REFLE X TO DIREC T LDL cholesterol, total 184 mg/dL <200 normal Not Available [facility] [address] [address] [place], [address], 10/10/2022 15:09:13 10/10/19 23 10/10/2022 LIPID PANEL WITH REFLE X TO DIREC T LDL HDL cholesterol 38 mg/dL > or = 40 low Not Available [address] [address] [place], [address], 10/10/2022 15:09:13 10/10/19 23 10/10/2022 LIPID PANEL WITH REFLE X TO DIREC T LDL triglyceride s 677 mg/dL <150 high If a non-f astin g speci men was colle cted, consi tabby repea t trigl yceri de testi ng on a fasti ng speci men if clini justin indic ated. Keagan perez et al. J. of Clin. Lipid ol. 2015; 9:129 -169. There is incre ased risk of pancr eatit is when the trigl yceri de enrico ntrat ion is very high (> or = 500 mg/dL , espec ially if > or = 1000 mg/dL ). Keagan perez et al. J. of Clin. Lipid ol. 2015; 9:129 -169. Not Available [facility] [address] [place], [address], 10/10/2022 15:09:13 10/10/19 23 10/10/2022 LIPID PANEL WITH REFLE X TO DIREC T LDL LDL-choleste rol mg/dL _(pat c) LDL noel stero l not calcu lated . Trigl yceri de level s great er than 400 mg/dL inval idate calcu lated LDL resul ts. Refer ence range : <100 Roseann able range <100 mg/dL for prima ry preve ntion ; <70 mg/dL for patie nts with CHD or diabe tic patie nts with > or = 2 CHD risk facto rs. LDL-C is now calcu lated using the Shaista n-Hop kins calcu latdomingo n, which is a valid ated novel metho d provi ding andrzej r accur acy than the Fried lupe equat ion in the estim ation of LDL-C . Shaista iqbal SS et al. TAMI. 2013; 310(1 9): 2061- 2068 (http ://ed ucati on.Qu estDi agnos tics. com/f aq/FA Q164) Not Available [facility] [address] [address] [place], [address], 10/10/2022 15:09:13 10/10/19 23 10/10/2022 LIPID PANEL WITH REFLE X TO DIREC T LDL chol/HDLC ratio 4.8 (calc ) <5.0 normal Not Available [facility] [address] [address] [place], [address], 10/10/2022 15:09:13 10/10/19 23 10/10/2022 LIPID PANEL WITH REFLE X TO DIREC T LDL non HDL cholesterol 146 mg/dL _(pat c) <130 high For patie nts with diabe pineda plus 1 major ASCVD risk facto r, treat ing to a non-H DL-C goal of <100 mg/dL (LDL- C of <70 mg/dL ) is consi dered a thera peuti c optio n. Not Available [facility] [address] [address] [place], [address], 10/10/2022 15:09:13 10/10/19 23 10/10/2022 DIREC T LDL direct LDL 55 mg/dL <100 normal Roseann able range <100 mg/dL for prima ry preve ntion ; <70 mg/dL for patie nts with CHD or diabe tic patie nts with > or = 2 CHD risk facto rs. Not Available [address] [id number] [place], [id number], 10/10/2022 15:09:14 10/10/19 23 10/10/2022 COMPR EHENS REGINO METAB OLIC PANEL glucose 130 mg/dL 65-99 high Fasti ng refer ence inter verito For someo ne witho ut known diabe pineda, a gluco se value >125 mg/dL indic ates that they may have diabe pineda and this shoul d be confi rmed with a follo w-up test. Not Available [facility] [id number] [place] [address], [id number], 10/10/2022 15:09:15 10/10/19 23 10/10/2022 COMPR EHENS REGINO METAB OLIC PANEL urea nitrogen (BUN) 12 mg/dL 7-25 normal Not Available [address], [address], 10/10/2022 15:09:15 10/10/19 23 10/10/2022 COMPR EHENS REGINO METAB OLIC PANEL creatinine 0.78 mg/dL 0.60-1 .29 normal Not Available [address], [address], 10/10/2022 15:09:15 10/10/19 23 10/10/2022 COMPR EHENS REGINO METAB OLIC PANEL eGFR 110 mL/mi n/1.7 3m2 > or = 60 normal Not Available [address], [address], 10/10/2022 15:09:15 10/10/19 23 10/10/2022 COMPR EHENS REGINO METAB OLIC PANEL BUN/creatini ne ratio SEE NOTE: (calc ) 6-22 Not Repor musa: BUN and Creat inine are withi n refer ence range . Not Available [address], [address], 10/10/2022 15:09:15 10/10/19 23 10/10/2022 COMPR EHENS REGINO METAB OLIC PANEL sodium 138 mmol/ L 135-14 6 normal Not Available [facility] [address], [address], 10/10/2022 15:09:15 10/10/19 23 10/10/2022 COMPR EHENS REGINO METAB OLIC PANEL potassium 4.4 mmol/ L 3.5-5. 3 normal Not Available [facility] [address], [address], 10/10/2022 15:09:15 10/10/19 23 10/10/2022 COMPR EHENS REGINO METAB OLIC PANEL chloride 103 mmol/ L 98-110 normal Not Available [address], [address], 10/10/2022 15:09:15 10/10/19 23 10/10/2022 COMPR EHENS REGINO METAB OLIC PANEL carbon dioxide 24 mmol/ L 20-32 normal Not Available [address], [address], 10/10/2022 15:09:15 10/10/19 23 10/10/2022 COMPR EHENS REGINO METAB OLIC PANEL calcium 9.0 mg/dL 8.6-10 .3 normal Not Available [address], [address], 10/10/2022 15:09:15 10/10/19 23 10/10/2022 COMPR EHENS REGINO METAB OLIC PANEL protein, total 7.4 g/dL 6.1-8. 1 normal Not Available [address], [address], 10/10/2022 15:09:15 10/10/19 23 10/10/2022 COMPR EHENS REGINO METAB OLIC PANEL albumin 4.6 g/dL 3.6-5. 1 normal Not Available [address], [address], 10/10/2022 15:09:15 10/10/19 23 10/10/2022 COMPR EHENS REGINO METAB OLIC PANEL globulin 2.8 g/dL_ (calc ) 1.9-3. 7 normal Not Available [address], [address], 10/10/2022 15:09:15 10/10/19 23 10/10/2022 COMPR EHENS REGINO METAB OLIC PANEL albumin/glob ulin ratio 1.6 (calc ) 1.0-2. 5 normal Not Available [address], [address], 10/10/2022 15:09:15 10/10/19 23 10/10/2022 COMPR EHENS REGINO METAB OLIC PANEL bilirubin, total 0.6 mg/dL 0.2-1. 2 normal Not Available [address], [address], 10/10/2022 15:09:15 10/10/19 23 10/10/2022 COMPR EHENS REGINO METAB OLIC PANEL alkaline phosphatase 78 U/L 36-130 normal Not Available [address], [address], 10/10/2022 15:09:15 10/10/19 23 10/10/2022 COMPR EHENS REGINO METAB OLIC PANEL AST 45 U/L 10-40 high Not Available [address], [address], 10/10/2022 15:09:15 10/10/19 23 10/10/2022 COMPR EHENS REGINO METAB OLIC PANEL ALT 69 U/L 9-46 high Not Available [address], [address], 10/10/2022 15:09:15 10/10/19 23 10/10/2022 ALBUM IN, RANDO M URINE W/CRE ATINI NE creatinine, random urine 128 mg/dL 20-320 normal Not Available [address], [address], 10/10/2022 15:09:16 10/10/19 23 10/10/2022 ALBUM IN, RANDO M URINE W/CRE ATINI NE albumin, urine 4.1 mg/dL see note: normal Refer ence Range : Refer ence Range Not estab lishe d Not Available [address] [place], [address], 10/10/2022 15:09:16 10/10/19 23 10/10/2022 ALBUM IN, RANDO M URINE W/CRE ATINI NE albumin/crea tinine ratio, random urine 32 mcg/m g_cre at <30 high The ADA defin es abnor malit ies in album in excre tion as follo ws: Album inuri a Categ ory Resul t (mcg/ mg creat inine ) Jammie l to Mildl y incre ased <30 Moder ately incre ased 30-29 9 Sever rebeca incre ased > OR = 300 The ADA recom mends that at least two of three speci mens colle cted withi n a 3-6 month perio d be abnor mal befor e consi guillermo g a patie nt to be withi n a diagn ostic categ ory. Not Available [address], [address], 10/10/2022 15:09:16 10/10/19 23 10/10/2022 TSH+F REE T4 TSH 1.18 mIU/L 0.40-4 .50 normal Not Available [address], [address], 10/10/2022 15:09:17 10/10/19 23 10/10/2022 TSH+F REE T4 T4, free 0.9 NG/dL 0.8-1. 8 normal Not Available [address], [address], 10/10/2022 15:09:17 10/10/19 23 10/10/2022 HEMOG LOBIN A1C hemoglobin A1C 6.1 %_of_ total _HGB <5.7 high For jimo ne witho ut known diabe pineda, a hemog lobin A1c value betwe en 5.7% and 6.4% is consi stent with predi abete s and shoul d be confi rmed with a follo w-up test. For someo ne with known diabe pineda, a value <7% indic ates that their diabe pineda is well contr olled . A1c targe ts shoul d be indiv idual ized based on durat ion of diabe pineda, age, comor bid condi tions , and other consi derat ions. This assay resul t is consi stent with an incre ased risk of diabe pineda. Curre ntly, no conse nsus exist s nanette clarke use of hemog lobin A1c for diagn osis of diabe pineda for child ozzy. Not Available [facility] [address] [address] [place], [address], 10/10/2022 15:09:18 10/17/1910/21/2023 LIPID PANEL , STAND RAS cholesterol, total 203 mg/dL <200 high Not Available [facility] [address] [address] [place], [address], 10/21/2023 02:13:12 10/17/19 24 10/21/2023 LIPID PANEL , STAND RAS HDL cholesterol 42 mg/dL > or = 40 normal Not Available [facility] [address] [address] [place], [address], 10/21/2023 02:13:12 10/17/19 24 10/21/2023 LIPID PANEL , STAND RAS triglyceride s 839 mg/dL <150 high If a non-f astin g speci men was colle cted, consi tabby repea t trigl yceri de testi ng on a fasti ng speci men if clini justin indic ated. Keagan perez et al. J. of Clin. Lipid ol. 2015; 9:129 -169. There is incre ased risk of pancr eatit is when the trigl yceri de enrico ntrat ion is very high (> or = 500 mg/dL , espec ially if > or = 1000 mg/dL ). Keagan nieto al. J. of Clin. Lipid ol. 2015; 9:129 -169. Not Available [facility] [address] [address] [place], [address], 10/21/2023 02:13:12 10/17/19 24 10/21/2023 LIPID PANEL , STAND RAS LDL-choleste rol mg/dL _(pat c) LDL noel stero l not calcu lated . Trigl yceri de level s great er than 400 mg/dL inval idate calcu lated LDL resul ts. Refer ence range : <100 Roseann able range <100 mg/dL for prima ry preve ntion ; <70 mg/dL for patie nts with CHD or diabe tic patie nts with > or = 2 CHD risk facto rs. LDL-C is now calcu lated using the Shaista n-Hop kins calcu latio n, which is a valid ated novel eugeniao d provi tricia andrzej r accur acy than the Fried lupe equat ion in the estim ation of LDL-C . Shaista iqbal SS et al. TAMI. 2013; 310(1 9): 2061- 2068 (http ://ed ucati on.Qu Marcie Emcore. com/f aq/FA Q164) Not Available [facility] [address] [place], [address], 10/21/2023 02:13:12 10/17/19 24 10/21/2023 LIPID PANEL , STAND RAS chol/HDLC ratio 4.8 (calc ) <5.0 normal Not Available [facility] [address] [place], [address], 10/21/2023 02:13:12 10/17/19 24 10/21/2023 LIPID PANEL , STAND RAS non HDL cholesterol 161 mg/dL _(pat c) <130 high For patie nts with diabe pineda plus 1 major ASCVD risk facto r, treat ing to a non-H DL-C goal of <100 mg/dL (LDL- C of <70 mg/dL ) is consi dered a thera peuti c optio n. Not Available [facility] [address] [place], [address], 10/21/2023 02:13:12 0910/21/2023 COMPR EHENS REGINO METAB OLIC PANEL glucose 138 mg/dL 65-99 high Fasti ng refer ence inter verito For someo ne witho ut known diabe pineda, a gluco se value >125 mg/dL indic ates that they may have diabe pineda and this shoul d be confi rmed with a follo w-up test. Not Available [address], [address], 10/21/2023 02:13:13 10/17/1910/21/2023 COMPR EHENS REGINO METAB OLIC PANEL urea nitrogen (BUN) 13 mg/dL 7-25 normal Not Available [address], [address], 10/21/2023 02:13:13 10/17/19 24 10/21/2023 COMPR EHENS REGINO METAB OLIC PANEL creatinine 0.72 mg/dL 0.60-1 .29 normal Not Available [address], [address], 10/21/2023 02:13:13 10/17/19 24 10/21/2023 COMPR EHENS REGINO METAB OLIC PANEL eGFR 112 mL/mi n/1.7 3m2 > or = 60 normal Not Available [address], [address], 10/21/2023 02:13:13 10/17/19 24 10/21/2023 COMPR EHENS REGINO METAB OLIC PANEL BUN/creatini ne ratio SEE NOTE: (calc ) 6-22 Not Repor musa: BUN and Creat inine are withi n refer ence range . Not Available [address], [address], 10/21/2023 02:13:13 10/17/19 24 10/21/2023 COMPR EHENS REGINO METAB OLIC PANEL sodium 137 mmol/ L 135-14 6 normal Not Available [address] [place], [address], 10/21/2023 02:13:13 10/17/1910/21/2023 COMPR EHENS REGINO METAB OLIC PANEL potassium 4.5 mmol/ L 3.5-5. 3 normal Not Available [address], [address], 10/21/2023 02:13:13 10/17/1910/21/2023 COMPR EHENS REGINO METAB OLIC PANEL chloride 100 mmol/ L 98-110 normal Not Available [address], [address], 10/21/2023 02:13:13 10/17/1910/21/2023 COMPR EHENS REGINO METAB OLIC PANEL carbon dioxide 23 mmol/ L 20-32 normal Not Available [address], [address], 10/21/2023 02:13:13 10/17/1910/21/2023 COMPR EHENS REGINO METAB OLIC PANEL calcium 9.5 mg/dL 8.6-10 .3 normal Not Available [address], [address], 10/21/2023 02:13:13 10/17/1910/21/2023 COMPR EHENS REGINO METAB OLIC PANEL protein, total 7.5 g/dL 6.1-8. 1 normal Not Available [address], [address], 10/21/2023 02:13:13 10/17/1910/21/2023 COMPR EHENS REGINO METAB OLIC PANEL albumin 4.7 g/dL 3.6-5. 1 normal Not Available [address], [address], 10/21/2023 02:13:13 10/17/1910/21/2023 COMPR EHENS REGINO METAB OLIC PANEL globulin 2.8 g/dL_ (calc ) 1.9-3. 7 normal Not Available [address], [address], 10/21/2023 02:13:13 10/17/1910/21/2023 COMPR EHENS REGINO METAB OLIC PANEL albumin/glob ulin ratio 1.7 (calc ) 1.0-2. 5 normal Not Available [address], [address], 10/21/2023 02:13:13 10/17/1910/21/2023 COMPR EHENS REGINO METAB OLIC PANEL bilirubin, total 0.5 mg/dL 0.2-1. 2 normal Not Available [address], [address], 10/21/2023 02:13:13 10/17/19 24 10/21/2023 COMPR EHENS REGINO METAB OLIC PANEL alkaline phosphatase 94 U/L 36-130 normal Not Available [address], [address], 10/21/2023 02:13:13 10/17/1910/21/2023 COMPR EHENS REGINO METAB OLIC PANEL AST 34 U/L 10-40 normal Not Available [address], [address], 10/21/2023 02:13:13 10/17/1910/21/2023 COMPR EHENS REGINO METAB OLIC PANEL ALT 54 U/L 9-46 high Not Available [address], [address], 10/21/2023 02:13:13 10/17/1910/21/2023 CBC (INCL UDES DIFF/ PLT) white blood cell count 5.2 thous and/u L 3.8-10 .8 normal Not Available [facility] [address], [address], 10/21/2023 02:13:13 10/17/1910/21/2023 CBC (INCL UDES DIFF/ PLT) red blood cell count 5.07 bakari on/uL 4.20-5 .80 normal Not Available [address], [address], 10/21/2023 02:13:13 10/17/1910/21/2023 CBC (INCL UDES DIFF/ PLT) hemoglobin 16.8 g/dL 13.2-1 7.1 normal Not Available [facility] [address], [address], 10/21/2023 02:13:13 10/17/1910/21/2023 CBC (INCL UDES DIFF/ PLT) hematocrit 50.5 % 38.5-5 0.0 high Not Available [address], [address], 10/21/2023 02:13:13 10/17/1910/21/2023 CBC (INCL UDES DIFF/ PLT) MCV 99.6 fL 80.0-1 00.0 normal Not Available [address], [address], 10/21/2023 02:13:13 10/17/1910/21/2023 CBC (INCL UDES DIFF/ PLT) MCH 33.1 pg 27.0-3 3.0 high Not Available [facility] [address], [address], 10/21/2023 02:13:13 10/17/1910/21/2023 CBC (INCL UDES DIFF/ PLT) MCHC 33.3 g/dL 32.0-3 6.0 normal Not Available [facility] [address], [address], 10/21/2023 02:13:13 10/17/1910/21/2023 CBC (INCL UDES DIFF/ PLT) RDW 13.1 % 11.0-1 5.0 normal Not Available [address], [address], 10/21/2023 02:13:13 10/17/1910/21/2023 CBC (INCL UDES DIFF/ PLT) platelet count 195 thous and/u L 140-40 0 normal Not Available [address], [address], 10/21/2023 02:13:13 10/17/1910/21/2023 CBC (INCL UDES DIFF/ PLT) MPV 9.6 fL 7.5-12 .5 normal Not Available [address], [address], 10/21/2023 02:13:13 10/17/19 24 10/21/2023 CBC (INCL UDES DIFF/ PLT) absolute neutrophils 2465 cells /uL 1500-7 800 normal Not Available [address], [address], 10/21/2023 02:13:13 10/17/19 24 10/21/2023 CBC (INCL UDES DIFF/ PLT) absolute lymphocytes 2096 cells /uL 850-39 00 normal Not Available [address], [address], 10/21/2023 02:13:13 10/17/1910/21/2023 CBC (INCL UDES DIFF/ PLT) absolute monocytes 510 cells /uL 200-95 0 normal Not Available [address], [address], 10/21/2023 02:13:13 10/17/1910/21/2023 CBC (INCL UDES DIFF/ PLT) absolute eosinophils 99 cells /uL 15-500 normal Not Available [address] [place], [address], 10/21/2023 02:13:13 10/17/1910/21/2023 CBC (INCL UDES DIFF/ PLT) absolute basophils 31 cells /uL 0-200 normal Not Available [facility] [address] [place], [address], 10/21/2023 02:13:13 10/17/1910/21/2023 CBC (INCL UDES DIFF/ PLT) neutrophils 47.4 % normal Not Available [facility] [address] [place], [address], 10/21/2023 02:13:13 10/17/1910/21/2023 CBC (INCL UDES DIFF/ PLT) lymphocytes 40.3 % normal Not Available [facility] [address], [address], 10/21/2023 02:13:13 10/17/1910/21/2023 CBC (INCL UDES DIFF/ PLT) monocytes 9.8 % normal Not Available [facility] [address], [address], 10/21/2023 02:13:13 10/17/1910/21/2023 CBC (INCL UDES DIFF/ PLT) eosinophils 1.9 % normal Not Available [facility] [address], [address], 10/21/2023 02:13:13 10/17/1910/21/2023 CBC (INCL UDES DIFF/ PLT) basophils 0.6 % normal Not Available [address], [address], 10/21/2023 02:13:13 10/17/1910/21/2023 PSA, TOTAL PSA, total 0.44 NG/mL < or = 4.00 normal The total PSA value from this assay jozef contreras is stand ardiz ed again st the WHO stand ras. The test resul t will be appro ximat rebeca 20% lower when marianela red to the equim olar- stand ardiz ed total PSA (Swanson man Coult er). Marianela rison of seria l PSA resul ts shoul d be inter prete d with this fact in mind. This test was perfo rmed using the Sieme ns chemi lumin escen t metho d. Value s obtai ge from diffe rent assay metho ds canno t be used inter oglesby eafabiany . PSA level s, regar dless of value , shoul d not be inter prete d as absol ana evide nce of the prese nce or absen ce of disea se. Not Available [facility] [address] [place], [address], 10/21/2023 02:13:14 10/17/19 24 10/21/2023 TSH W/REF GERRY TO FT4 TSH w/reflex to FT4 2.15 mIU/L 0.40-4 .50 normal Not Available [facility] [address] [place], [address], 10/21/2023 02:13:14 10/17/1910/21/2023 HEMOG LOBIN A1C hemoglobin A1C 7.0 %_of_ total _HGB <5.7 high For someo ne witho ut known diabe pineda, a hemog lobin A1c value of 6.5% or great er indic ates that they may have diabe pineda and this shoul d be confi rmed with a follo w-up test. For someo ne with known diabe pineda, a value <7% indic ates that their diabe pineda is well contr olled and a value great er than or equal to 7% indic ates subop timal contr ol. A1c targe ts shoul d be indiv idual ized based on durat ion of diabe pineda, age, comor bid condi tions , and other consi derat ions. Curre ntly, no conse nsus exist s regar ding use of hemog lobin A1c for diagn osis of diabe pineda for child ozzy. This test was perfo rmed on the Reinaldo dennis c503 platf orm. Effec tive , a reny ugarte in test platf orms from the Abbot t Ar[facility] tect to the Reinaldo dennis c503 may have shift ed HbA1c resul ts marianela red to histo rical resul ts. Based on labor atory valid ation testi ng condu cted at [facility] , the Reinaldo platf orm relat regino to the Abbot t platf orm had an avera ge incre ase in HbA1c value of < or = 0.3%. This diffe rence is withi n accep musa varia bilit y estab lishe d by the Natdomingo nal Glyco hemog lobin Stand [facility] am. Note that not all indiv idual s will have had a shift in their resul ts and direc t marianela rison s betwe en histo rical and curre nt resul ts for testi ng condu cted on diffe rent platf orms is not recom maria guadalupe d. Not Available [facility] [address] [place], [address], 10/21/2023 02:13:14 10/17/1910/21/2023 TESTO STERO NE, FREE (DIAL YSIS) AND TOTAL ,MS testosterone , total, MS 314 NG/dL 250-11 00 Men with clini justin signi fican t hypog onada l sympt oms and testo stero ne value s repea tedly in the range of the 200-3 00 ng/dL or less, may benef it from testo stero ne treat ment after adequ ate risk and benef its couns eling . For addit ional infor meeta baldwin e refer to https ://ed ucati on.qu estdi Touchmedias. com/f aq/FA B159 (This link is being provi ded for infor elie nal/e ducat ional purpo ses only. ) (Note ) This test was devel oped and its luis tical perfo rmanc e peyman cteri stics have been deter mined by med brady. It has not been clear ed or appro heydi by the FDA. This assay has been valid ated pursu ant to the CLIA regul ation s and is used for clini pat purpo ses. Not Available [facility] [address] [place], [address], 10/21/2023 02:13:15 10/17/1910/21/2023 TESTO STERO NE, FREE (DIAL YSIS) AND TOTAL ,MS testosterone , free 58.9 pg/mL 35.0-1 55.0 (Note ) This test was devel oped and its luis tical perfo rmanc e peyman cteri stics have been deter mined by [employer]. It has not been clear ed or appro heydi by the FDA. This assay has been valid ated pursu ant to the CLIA regul ation s and is used for clini pat purpo ses. MDF med fusio n [address] [facility] [address] [facility] [address] [phone] [facility] Cueto MD, PhD Not Available [facility] [address] [address], [place], [address], 10/21/2023 02:13:15 Result Notes None recorded. Problems Name Problem SNOMED Code Status Onset Date Resolution Date Notes Provider Name and Address Organization Details Recorded Time Dyslipidemia 864344708 Active 2021 Not Available [facility] 3 00:57:27 Type 2 diabetes mellitus 74815258 Active 2021 Not Available [facility] 3 00:57:27 Hyperlipidemi a 08352890 Active 2021 Not Available [facility] 3 00:57:28 COVID-19 883290695 Active 2022 Melissa Veronica MD [address], [place], [address] , [facility] [employer] [facility] 3 13:16:42 Mixed anxiety and depressive disorder 080729740 Active 2022 Melissa Veronica MD [address], [address] , [facility] 3 18:28:30 Well controlled type 2 diabetes mellitus 837538773 Active 2022 Anna Vincent MD [address], [place] [address], [place], [address] , [facility] 3 15:54:01 Proteinuria 63119712 Active 2022 Anna Vincent MD [address], [address], [address] , [facility] 3 15:55:26 Anti-nuclear factor detected 219626255 Active 2022 Anna Vincent MD [address], [address], [address] , [facility] 3 13:58:42 Mixed hyperlipidemi a 850524226 Active 2022 Anna Vincent MD [address], [address], [address] , [facility] 3 14:10:53 Testosterone level below reference range 779746870 Active 2023 JUSTINO Zee [address], [address], [address] , [facility] 4 11:50:55 Hypertriglyce ridemia 723055657 Active 2023 JUSTINO Zee [address], [address] , [facility] 4 10:58:38 Pure hyperglycerid emia 975559893 Active 2024 JUSTINO Suh [address], [address], [address] , [facility] 5 08:45:45 Problem Notes Documentation Provider Name and Address Organization Details Recorded Time Endocrinology Consult Note : [facility] [address], [facility] [address], Joseph (id #[id number], : 1975) Documents sent via fax will include the following message: This fax may contain sensitive and confidential personal health information that is being sent for the sole use of the intended recipient. Unintended recipients are directed to securely destroy any materials received. You are hereby notified that the unauthorized disclosure or other unlawful use of this fax or any personal health information is prohibited. To the extent patient information contained in this fax is subject to 42 CFR Part 2, this regulation prohibits unauthorized disclosure of these records. If you received this fax in error, please visit [email or web address] to notify the sender and confirm that the information will be destroyed. If you do not have internet access, please call to notify the sender and confirm that the information will be destroyed. Thank you for your attention and cooperation. [ID:[id number]][facility] [employer] [address] [place] [address] , Date: 06/30/2022RE: Vikram Finn, : 1975, PT ID #[id number] Veronica MD, I would like to thank you for referring Vikram Finn to our practice for consultation and evaluation of FU ON LABS B , on 06/30/2022. I have enclosed a copy of the office evaluation for your records. Once again, thank you for allowing me to participate in the care of this patient. Sincerely, Electronically Signed by: ANNA VINCENT MD Encounter Reason/Date FU ON LABS B 06/30/2022 - 02:45PM - [facility] Mandeep Constantino Angela Problems:Reviewed Problems Type 2 diabetes mellitus - Onset: 08/18/2021 Dyslipidemia - Onset: 2021 Hyperlipidemia - Onset: 08/18/2021 Mixed anxiety and depressive disorder - Onset: 05/17/2022 Proteinuria - Onset: 06/30/2022 COVID-19 - Onset: 04/27/2022 Type 2 diabetes mellitus well controlled - Onset: 06/30/2022 Allergies: Reviewed Allergies NKDA Medications: Reviewed Medications NameDate Source BinaxNOGuillaume COVID-19 Ag Self Test kitTEST DIRECTED TODAY10/12/21 filled MIGRATION.[id number] ID NOW COVID-19 Test KitTEST DIRECTED TODAY06/23/21 filled MIGRATION.[id number] metFORMIN ER 500 mg tablet,extended release 24 hrTAKE 1 TABLET BY MOUTH EVERY DAY04/22/22 filled surescripts OneTouch Delica Plus Lancet 30 gaugeUSE TO TEST BLOOD SUGAR LEVELS DAILY10/04/21 filled MIGRATION.[id number] OneTouch Ultra Test stripsUSE TO TEST ONCE DAILY04/17/22 filled surescripts OneTouch Ultra2 Meter09/13/21 filled MIGRATION.[id number] rosuvastatin 40 mg tabletTAKE 1 TABLET BY MOUTH EVERY DAY04/22/22 filled surescripts sertraline 100 mg tablet1/2 tab with food x 2 weeks then increase to 1 po qday with food05/17/22 filled surescripts Vascepa 1 gram capsuleTAKE 2 CAPSULES BY MOUTH TWICE DAILY06/21/22 filled surescripts Family History: Father - Hypertensive disorder Paternal Grandfather - Malignant tumor of prostate Social History:Diet and ExerciseWhat type of diet are you following?: RegularSubstance UseDo you or have you ever smoked tobacco?: Never smokerWhat was the date of your most recent tobacco screening?: 06/20/2021Education and OccupationWhat is 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 last seen in Dec at that time we had patient continue low carb diet and metformin ER 500 mg once daily. we continued statin and vascepa He was diagnosed with DM close to 1 year now. sugars running around in morning around 120 mg/dL and lesssecond check he tests twice a day 80-128 mg/dl 30 days outpremeals 128 mg/dL up to 200 mg/dL 90 days out 87% in range labs from 06/06/22:glucose 113 mg/dLCr normalalt 47 U/Lmicroalbumin 283 ug/mgtsh of 1.5 uIU/mlFT4 of 1.0 ng/dLa1c 6%163/316/48/77Review of Systems:ROS as noted in the HPIPhysical ExamConstitutional:General Appearance: healthy-appearing, well-nourished, well-developed, not anxious/nervous, and no sweating. Level of Distress: no acute distress. Eyes:Lids and Conjunctivae: no discharge, pallor, lid lag, or periorbital edema and non-injected. Neck:Neck: supple, trachea midline, no masses, and full range of motion. Thyroid: no enlargement or nodules and non-tender. Neck vessels: no carotid bruits or thyroid bruits. Lymph Nodes: no anterior cervical LAD, posterior cervical LAD, submandibular LAD, submental LAD, preauricular LAD, or supraclavicular LAD. Cardiovascular:Apical Impulse: not displaced. Heart Auscultation: normal S1 and S2; no murmurs, rubs, or gallops; and regular rate and rhythm. Lungs:Auscultation: no wheezing, rales/crackles, or rhonchi and breath sounds normal, good air movement, and clear to auscultation. Psychiatric:Mental Status: normal mood and affect, no diffuse anxiety or paranoid ideations, and active and alert.Procedure DocumentationNone recordedAssessment/Plan1. Type 2 diabetes mellitus well controlled-a1c of 6% stable- continue on metformin with meals as he is tolerating well. Had normal cpeptide consistent with adequate insulin stores from recent labwork. proteinuria in urine however he had covid in February and previously protein was overall in high normal range - will evaluate further as noted below. Discussed carb counting and how to read food labels. Recommended patient to utilize the diabetesImmune System Therapeuticsb.SuperDerivatives from the ADA website to help with food preparation as this presents ideal carb content per meal so this will make carb counting much easier for patient. Recommended he incorporate natural insulin sensitizers such as pears, apples, cinnamon, mervin and sweet potatoes to help mobilize his endogenous insulin. Recommended up to 150 minutes of moderate level activity/exercise weekly.E11.9: Type 2 diabetes mellitus without complications HEMOGLOBIN A1C COMPREHENSIVE METABOLIC PANEL ALBUMIN, RANDOM URINE W/CREATININE 2. Dyslipidemia-continue rosuvastatin and vascepa.E78.5: Hyperlipidemia, unspecified LIPID PANEL WITH REFLEX TO DIRECT LDL TSH+FREE T4 3. Proteinuria-had covid in February so protein levels jumped from 50 up to 298 ug/mg- will repeat to see if reproducible as this may be a covid related event - he has had DM for just over 1 year and since well controlled so doesn't really fit diabetic nephropathy- GFR and Cr in range- send for lupus and rheumatoid screen for further workup. Spent up to 28 minutes preparing to see the patient (eg, review of tests), obtaining and/or reviewing separately obtained history, performing a medically appropriate examination and evaluation, counseling and educating the patient, ordering medications, tests, along with documenting clinical information in the electronic health record, independently interpreting results and communicating results to the patient. RTC in 4 months. Patient was provided a handwritten lab order which contains our fax number. If he chooses to go outside of the [employer] system to obtain labwork he was advised to provide our fax number and my information to the lab he will be obtaining labwork from in order to have his labs properly forwarded over for me to review so there is no loss of follow up due to use of outside network. He was also advised to contact our clinic informing us that he has completed his labwork so we are aware we will need to reach out to the appropriate laboratory to request his results be forwarded to us so I might have the ability to review and make further medical decision making in his case. He voiced understanding.R80.9: Proteinuria, unspecified ALBUMIN, RANDOM URINE W/CREATININE JESSICA MULTIPLEX W/REFLEX 11 AB CASCADE RHEUMATOID ARTHRITIS DIAGNOSTIC IDENTRA(R) PANEL 2 Return to Office Anna Vincent MD for Follow Up 15 at [facility] Mandeep Angela on 10/20/2022 at 01:00 PM WALDEMAR Baez, [place] - [facility] Cued [facility] 06/30/2022 17:02:04 [facility]ocrinology Consult [facility] : [facility] [address], [place] [address]MTVFP, Joseph (id #[id number], : 1975) Documents sent via fax will include the following message: This fax may contain sensitive and confidential personal health information that is being sent for the sole use of the intended recipient. Unintended recipients are directed to securely destroy any materials received. You are hereby notified that the unauthorized disclosure or other unlawful use of this fax or any personal health information is prohibited. To the extent patient information contained in this fax is subject to 42 CFR Part 2, this regulation prohibits unauthorized disclosure of these records. If you received this fax in error, please visit [email or web address] to notify the sender and confirm that the information will be destroyed. If you do not have internet access, please call to notify the sender and confirm that the information will be destroyed. Thank you for your attention and cooperation. [ID:[id number]][facility] [employer] [facility] [address] [place] [address] , Date: 10/20/2022RE: Vikram Finn, : 1975, PT ID #[id number] Veronica MD, I would like to thank you for referring Vikram Finn to our practice for consultation and evaluation of FU ON LABS , on 10/20/2022. I have enclosed a copy of the office evaluation for your records. Once again, thank you for allowing me to participate in the care of this patient. Sincerely, Electronically Signed by: ANNA VINCENT MD Encounter Reason/Date FU ON LABS 10/20/2022 - 01:00PM - [facility] [place] Problems:Reviewed Problems Type 2 diabetes mellitus - Onset: 08/18/2021 Mixed hyperlipidemia - Onset: 10/20/2022 Dyslipidemia - Onset: 2021 Hyperlipidemia - Onset: 08/18/2021 Mixed anxiety and depressive disorder - Onset: 05/17/2022 Proteinuria - Onset: 06/30/2022 Anti-nuclear factor positive - Onset: 07/20/2022 COVID-19 - Onset: 04/27/2022 Type 2 diabetes mellitus well controlled - Onset: 06/30/2022 Allergies: Reviewed Allergies NKDA Medications: Reviewed Medications NameDate Source metFORMIN ER 500 mg tablet,extended release 24 hrTAKE 1 TABLET BY MOUTH EVERY DAY10/20/22 prescribed Anna Vincent MD OneTouch Delica Plus Lancet 30 gaugeUSE TO TEST BLOOD SUGAR LEVELS DAILY10/04/21 filled MIGRATION.[id number] OneTouch Ultra Test stripsUSE TO TEST ONCE DAILY10/17/22 filled surescripts OneTouch Ultra2 Meter09/13/21 filled MIGRATION.[id number] rosuvastatin 40 mg tabletTAKE 1 TABLET BY MOUTH EVERY DAY10/20/22 prescribed Anna Vincent MD sertraline 25 mg tabletTAKE 1 TABLET BY MOUTH EVERY DAY08/01/22 filled surescripts Vascepa 1 gram capsuleTAKE 2 CAPSULES BY MOUTH TWICE DAILY10/20/22 prescribed Anna Vincent MD Family History: Father - Hypertensive disorder Paternal Grandfather - Malignant tumor of prostate Social History:Substance UseDo you or have you ever smoked tobacco?: Never smokerWhat was the date of your most recent tobacco screening?: 06/20/2021Marriage and SexualityWhat is your relationship status?: MarriedEducation and 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 last seen in June at that time we continued metformin. we continued statin and vascepa. sugars running under 120 mg/dL consistently no further proteinuria follows rheumatology in [place] following markers and noted high LFTs labs from 10/09/22:a1c of 6.1%TSH of 1.18 uIU/mlFT4 of 0.9 ng/dLmicroalbumin 32 ug/mg (was over 282 ug/mg following covid)glucose 130 mg/dLCr normalLFT embx585/677/38/146 (when he had bloodwork he had work travel- was eating out more at that time)- hasn't been exercising as much as he would likeReview of Systems:ROS as noted in the HPIPhysical ExamConstitutional:General Appearance: healthy-appearing, well-nourished, well-developed, not anxious/nervous, and no sweating. Level of Distress: no acute distress. Eyes:Lids and Conjunctivae: no discharge, pallor, lid lag, or periorbital edema and non-injected. Neck:Neck: supple, trachea midline, no masses, and full range of motion. Thyroid: no enlargement or nodules and non-tender. Neck vessels: no carotid bruits or thyroid bruits. Lymph Nodes: no anterior cervical LAD, posterior cervical LAD, submandibular LAD, submental LAD, preauricular LAD, or supraclavicular LAD. Cardiovascular:Apical Impulse: not displaced. Heart Auscultation: normal S1 and S2; no murmurs, rubs, or gallops; and regular rate and rhythm. Lungs:Auscultation: no wheezing, rales/crackles, or rhonchi and breath sounds normal, good air movement, and clear to auscultation. Psychiatric:Mental Status: normal mood and affect, no diffuse anxiety or paranoid ideations, and active and alert.Procedure DocumentationNone recordedAssessment/Plan1. Type 2 diabetes mellitus well controlled-a1c of 6.1% stable- continue on metformin with meals as he is tolerating well. Had normal cpeptide consistent with adequate insulin stores. Proteinuria resolved since having covid- most recent in range- to be monitored by PCP. Recommended he incorporate natural insulin sensitizers such as pears, apples, cinnamon, mervin and sweet potatoes to help mobilize his endogenous insulin. Recommended up to 150 minutes of moderate level activity/exercise weekly.E11.9: Type 2 diabetes mellitus without complications metformin ER 500 mg tablet,extended release 24 hr - TAKE 1 TABLET BY MOUTH EVERY DAY Qty: (90) tablet Refills: 1 Pharmacy: [facility] [id number] [facility] 2. Mixed hyperlipidemia-TG elevated due to recent trip and poor carb intake- up from 300 mg/dL range up to 600 mg/dL range- encouraged low carb under 120 grams per day and continued use of statin and vascepa. Spent up to 25 minutes preparing to see the patient (eg, review of tests), obtaining and/or reviewing separately obtained history, performing a medically appropriate examination and evaluation, counseling and educating the patient, ordering medications, tests, along with documenting clinical information in the electronic health record, independently interpreting results and communicating results to the patient. Patient can be followed by PCP - she/he is aware of my resignation and last day of November 24. If needed his/her PCP can refer patient to another precision printing worker in the area. All questions /concerns answered and refills necessary at visit today.E78.2: Mixed hyperlipidemia rosuvastatin 40 mg tablet - TAKE 1 TABLET BY MOUTH EVERY DAY Qty: (90) tablet Refills: 1 Pharmacy: [facility] Vascepa 1 gram capsule - TAKE 2 CAPSULES BY MOUTH TWICE DAILY Qty: (360) capsule Refills: 1 Pharmacy: [facility] IN [facility] Return to Office Patient will return to the office as needed ROMERO Urrutia, [place] - [facility] 10/20/2022 14:39:09 Medical Equipment None Reported. Allergies No known drug allergies Medications Name Sig Start Date Stop Date Status Note LastModified by Organization Details LastModified Time losartan 50 mg tablet TAKE 1 TABLET BY MOUTH ONCE DAILY active Not Available Not Available No t Available hydrocodone 5 mg-acetamin ophen 325 mg tablet TAKE 1 TO 2 TABLETS BY MOUTH EVERY 6 HOURS NEEDED FOR PAIN 06/20 completed Not Available Not Available Not Available sertraline 100 mg tablet 1 TABLET BY MOUTH DAILY WITH FOOD 08/01 completed Not Available Not Available Not Available ketorolac 10 mg tablet TAKE 1 TABLET BY MOUTH EVERY 6 HOURS FOR 4 DAYS 06/20 completed Not Available Not Available Not Available OneTouch Ultra Test strips USE TO TEST ONCE DAILY 2024 active Not Available Not Available Not Avai lable sertraline 25 mg tablet Take 1 tablet every day by oral route. 2024 active Not Available Not Available Not Avai lable metformin ER 500 mg tablet,exte nded release 24 hr TAKE 2 TABLET BY MOUTH EVERY DAY 2024 active Not Available Not Available Not Avai lable rosuvastati n 40 mg tablet TAKE 1 TABLET BY MOUTH EVERY DAY 06/02/ 2025 active Not Available Not Available Not Avai lable fenofibrate 54 mg tablet Take 1 tablet every day by oral route. 2024 active Not Available Not Available Not Avai lable Vascepa 1 gram capsule TAKE 2 CAPSULES BY MOUTH TWICE A DAY 2024 active Not Available Not Available Not Avai lable OneTouch Ultra2 Meter active Not Available Not Available Not Available OneTouch Delica Plus Lancet 30 gauge USE TO TEST BLOOD SUGAR LEVELS DAILY active Not Available Not Available No t Available ID NOW COVID-19 Test Kit TEST DIRECTED TODAY 10/20 completed Not Available Not Available Not Available BinaxNOW COVID-19 Ag Self Test kit TEST DIRECTED TODAY 10/20 completed Not Available Not Available Not Available Paxlovid 300 mg (150 mg x 2)-100 mg tablets in a dose pack 1 dose po bid x 5 days 05/17 completed Not Available Not Available Not Available Vitals Date Recorded Body height Body mass index (BMI) Body weight Body temperature Heart rate Systolic blood pressure Diastolic blood pressure Provider Name and Address Organization Details Last Updated DateTime 3 185.42 cm 23.9 kg/m2 67580.9 4 g 98 [degF] 69 /min 142 mm[Hg] 94 mm[Hg] Nivia Ram [facility] 3 15:43:00 Date Recorded Body height Body mass index (BMI) Body weight Body temperature Heart rate Oxygen saturation Oxygen saturation in Arterial blood by Pulse oximetry Systolic blood pressure Diastolic blood pressure Provider Name and Address Organization Details Last Updated DateTime 5 185.42 cm 24.1 kg/m2 48869.4 g 97.5 [degF] 70 /min 98 % 98 % 122 mm[Hg] 88 mm[Hg] David Ren [facility] 5 08:37:57 Date Recorded Body height Body mass index (BMI) Body weight Body temperature Heart rate Oxygen saturation Oxygen saturation in Arterial blood by Pulse oximetry Systolic blood pressure Diastolic blood pressure Provider Name and Address Organization Details Last Updated DateTime 4 185.42 cm 24.1 kg/m2 11921.4 g 98 [degF] 74 /min 97 % 97 % 146 mm[Hg] 92 mm[Hg] Aurelia Clement RN [facility] [employer] [facility] 4 11:44:50 Date Recorded Body height Body mass index (BMI) Body weight Body temperature Respiratory rate Heart rate Systolic blood pressure Diastolic blood pressure Provider Name and Address Organization Details Last Updated DateTime 3 185.42 cm 24.3 kg/m2 62423 g 97.6 [degF] 12 /min 72 /min 138 mm[Hg] 93 mm[Hg] Alysia Guajardo RN [facility] [employer] [facility] 3 13:56:01 Date Recorded Body height Body mass index (BMI) Body weight Body temperature Heart rate Oxygen saturation Oxygen saturation in Arterial blood by Pulse oximetry Systolic blood pressure Diastolic blood pressure Systolic blood pressure Diastolic blood pressure Provider Name and Address Organization Details Last Updated DateTime 4 185.42 cm 24.5 kg/m2 89829.1 8 g 97.8 [degF] 85 /min 98 % 98 % 156 mm[Hg] 96 mm[Hg] 140 mm[Hg] 88 mm[Hg] Aurelia Clement RN [facility] [employer] [facility] 4 11:15:46 Social History Question Answer Notes LastModified by Organizat ion Details LastModified Time Tobacco Smoking Status Never Smoker Kylah lewis [facility] [employer] [facility] 05/17/2022 17:52:26 What Is Your Level Of Caffeine Consumption? Occasional Information not available 07/14/2024 What Type Of Diet Are You Following? REGULAR [id number] Information not available 04/13/2022 Do You Use Insect Repellent Routinely? Yes Information not available 07/14/2024 Where Do You Live? [facility] Information not available 07/14/2024 What Was The Date Of Your Most Recent Tobacco Screening? 07/14/2024 Information not available 07/14/2024 Do You Have Any Pets? Yes Information not available 07/14/2024 What Is Your Relationship Status? [id number] Information not available 04/13/2022 Do You Use Your Seat Belt Or Car Seat Routinely? Yes Information not available 07/14/2024 Do You Have Smoke And Carbon Monoxide Detectors In Your Home? Yes Information not available 07/14/2024 Are There Any Smokers In Your House? No Information not available 07/14/2024 Do You Use Sunscreen Routinely? Yes Information not available 07/14/2024 Sex: Male Functional Status Question Answer Note LastModified by Organizat ion Details LastModified Time Do you use any illicit or recreational drugs? No Information not available 07/14/2024 What is your level of alcohol consumption? Occasional Information not available 07/14/2024 Are you currently employed? 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 [id number] Information not available 07/14/2024 Family History Relationship Description Onset Age of this Age Resolved Age Notes LastModified by Organization Details LastModified Time Father Hypertensive disorder [id number] Not available 04/13/2022 00:57:02 Paternal Grandfather Malignant neoplasm of prostate [id number] Not available 04/13/2022 00:57:02 Medical History Condition Response DIABETES, TYPE Y HIGH CHOLESTEROL / HYPERLIPIDEMIA Y Past Encounters Encounter ID Performer Location Encounter Start Date Encounter Closed Date Diagnosis/Indication Diagnosis SNOMED-CT Code Diagnosis ICD10 Code Diagnosis Note [id number] Melissa Veronica MD [facility] Primary Care [address] [place] [address] 06/20/2021 00:00:00 06/20/2021 11:18:09 [id number] Melissa Veronica MD [facility] Primary Care [facility] [address] [place] [address] 08/31/2021 00:00:00 09/05/2021 08:25:49 [id number] [facility] [place] [facility] [address] [place] [address] 2021 00:00:00 2021 10:29:50 [id number] Melissa Veronica MD [facility] Primary Care [facility] [address] [facility] [address] [address] [place] [address] 10/11/2021 00:00:00 10/11/2021 22:19:39 [id number] S[facility] [place] [address] [place] [address] 12/20/2021 00:00:00 12/20/2021 15:46:07 [id number] Melissa Veronica MD [facility] Primary Care [facility] [address] [place] [address] 05/17/2022 17:51:47 06/12/2022 12:00:55 Mixed anxiety and depressive disorder [id number] F41.8 trial of sertraline 100 mg 1/2 tab daily with food x 2 weeks then increase to 1 po qdayReview ed potential med s/e, d/c and be seen if any si/hif/u in 4 weeks or sooner if needed [id number] Anna Vincent MD [facility] [place] [facility] [address] [place] [address] 06/30/2022 15:31:01 06/30/2022 16:13:52 Well controlled type 2 diabetes mellitus 582571476 E11.9 a1c of 6% stable- continue on metformin with meals as he is tolerating well. Had normal cpeptide consistent with adequate insulin stores from recent labwork. proteinuri a in urine however he had covid in February and previously protein was overall in high normal range - will evaluate further as noted below. Discussed carb counting and how to read food labels. Recommende d patient to utilize the diabetesfo [employer].SuperDerivatives from the ADA website to help with food preparatio n as this presents ideal carb content per meal so this will make carb counting much easier for patient. Recommende d he incorporat e natural insulin lead mechanical engineer s such as pears, apples, cinnamon, mervin and sweet potatoes to help mobilize his endogenous insulin. Recommende d up to 150 minutes of moderate level activity/e xercise weekly. Dyslipidemia 713144905 E 78.5 continue rosuvastat in and vascepa. Proteinuria 84700128 R80 .9 had covid in February so protein levels jumped from 50 up to 298 ug/mg- will repeat to see if reproducib le as this may be a covid related event - he has had DM for just over 1 year and since well controlled so doesn't really fit diabetic nephropath y- GFR and Cr in range- send for lupus and rheumatoid screen for further workup. Spent up to 28 minutes preparing to see the patient (eg, review of tests), obtaining and/or reviewing separately obtained history, performing a medically appropriat e examinatio n and evaluation , counseling and educating the patient, ordering medication s, tests, along with documentin g clinical informatio n in the electronic health record, independen tly interpreti ng results and communicat ing results to the patient. RTC in 4 months. Patient was provided a handwritte n lab order which contains our fax number. If he chooses to go outside of the [facility] system to obtain labwork he was advised to provide our fax number and my informatio n to the lab he will be obtaining labwork from in order to have his labs properly forwarded over for me to review so there is no loss of follow up due to use of outside network. He was also advised to contact our clinic informing us that he has completed his labwork so we are aware we will need to reach out to the appropriat e laboratory to request his results be forwarded to us so I might have the ability to review and make further medical decision making in his case. He voiced understand ing. [id number] Anna Vincent MD [facility] [address] [place] [address] 10/20/2022 13:50:04 10/20/2022 14:18:23 Well controlled type 2 diabetes mellitus [id number] E11.9 a1c of 6.1% stable- continue on metformin with meals as he is tolerating well. Had normal cpeptide consistent with adequate insulin stores. Proteinuri a resolved since having covid- most recent in range- to be monitored by PCP. Recommende d he incorporat e natural insulin lead mechanical engineer s such as pears, apples, cinnamon, mervin and sweet potatoes to help mobilize his endogenous insulin. Recommende d up to 150 minutes of moderate level activity/e xercise weekly. Mixed hyperlipidemia 267 166988 E78.2 TG elevated due to recent trip and poor carb intake- up from 300 mg/dL range up to 600 mg/dL range- encouraged low carb under 120 grams per day and continued use of statin and vascepa. Spent up to 25 minutes preparing to see the patient (eg, review of tests), obtaining and/or reviewing separately obtained history, performing a medically appropriat e examinatio n and evaluation , counseling and educating the patient, ordering medication s, tests, along with documentin g clinical informatio n in the electronic health record, independen tly interpreti ng results and communicat ing results to the patient. Patient can be followed by PCP - she/he is aware of my resignatio n and last day of November 24. If needed his/her PCP can refer patient to another endocrinol ogist in the area. All questions /concerns answered and refills necessary at visit today. [id number] JUSTINO Zee [facility] Primary Care [address] [place] [address] 10/04/2023 11:39:58 10/04/2023 11:57:56 Type 2 diabetes mellitus 59323783 E11.65 Mixed hyperlipidemia 267 410845 E78.2 Adult heal th examination 993927777 Z00.00 Encouraged fresh fruits and veggies-me d intakeIncr ease daily water intake-goo d water intakeEnco urage 30 mins of daily exercise-d oes not exercise daily, does run when he gets a chanceColo noscopy-no t neededLDCT -not a smoker Testostero ne level below reference range [id number] R89.1 Screening for malignant neoplasm of prostate [id number] Z12.5 Thyroid di sorder screening 507763005 Z13.29 Anemia screening [id number] Z13.0 [id number] JUSTINO Zee [facility] Primary Care [facility] [address] [place] [address] 11/14/2023 10:45:05 11/14/2023 12:17:14 Hypertriglyceridemia [id number] E78.1 Well contr olled type 2 diabetes mellitus [id number] E11.9 A1c increasing increasing metformin to 2 tabs bid [id number] JUSTINO Suh [facility] Primary Care Aj shepherd [address] [place] [address] 07/14/2024 08:23:30 07/14/2024 08:46:12 Mixed hyperlipidemia 564715669 E78.2 Well contr olled type 2 diabetes mellitus [id number] E11.9 Type 2 carmela betes mellitus without complication [id number] E11.9 Renewal of prescription 572235260 Z76.0 Pure hyperglyceridemia [id number] E78.1 Health Concerns Section Related Observation LastModified by Organization Detai ls LastModified Time None Recorded Concern Status LastModified by Organization Details LastModified Time None Recorded Advance Directives Directive None Recorded Payers Insurance Date Sequence Insurance Name Policy Number Policy Oshea Covered Member ID Oshea Member ID Guarantor Name 07/13/2024 1 [employer] (POS II) [id number] Vikram Finn [id number] Vikram Finn Notes Date Note Type Note Provider Name and Address Organization Details Recorded Time 06/30/2022 text/html 46 yo male comes in for follow up in management of well controlled type 2 DM (A1C of 6%), and dyslipidemia. last seen in Dec at that time we had patient continue low carb diet and metformin ER 500 mg once daily. we continued statin and vascepa He was diagnosed with DM close to 1 year now. sugars running around in morning around 120 mg/dL and lesssecond check he tests twice a day 80-128 mg/dl 30 days outpremeals 128 mg/dL up to 200 mg/dL 90 days out 87% in range labs from 06/06/22:glucose 113 mg/dLCr normalalt 47 U/Lmicroalbumin 283 ug/mgtsh of 1.5 uIU/mlFT4 of 1.0 ng/dLa1c 6%163/316/48/77 Anna Vicnent MD [address], [place], [address], [facility] 06/30/2022 16:53:03 10/20/2022 text/html 47 yo male comes in for follow up in management of well controlled type 2 DM (A1C of 6.1%), mixed dyslipidemia. last seen in June at that time we continued metformin. we continued statin and vascepa. sugars running under 120 mg/dL consistently no further proteinuria follows rheumatology in [place] following markers and noted high LFTs labs from 10/09/22:a1c of 6.1%TSH of 1.18 uIU/mlFT4 of 0.9 ng/dLmicroalbumin 32 ug/mg (was over 282 ug/mg following covid)glucose 130 mg/dLCr normalLFT utpt147/677/38/146 (when he had bloodwork he had work travel- was eating out more at that time)- hasn't been exercising as much as he would like Anna Vincent MD [address], [place], [address], [employer] 10/20/2022 14:16:37 10/04/2023 text/html Pt is here for physical JUSTINO Zee [address], [place], [address], [employer] 10/04/2023 12:01:12 11/14/2023 text/html pt is here for f/u JUSTINO Kan [address], [place], [address], [employer] 11/14/2023 11:24:58 07/14/2024 text/html Patient is a 48 year old male that presents to the office for follow up. Patient was previously seeing JUSTINO Zee. Patient reports he is doing well and has no concerns at this time including chest pain and shortness of breath. JUSTINO Suh [address], [place], [address], [employer] 07/14/2024 08:50:08
--- OUTSIDE RECORDS SUMMARY | 2024-07-27 07:27 | XMS_ITS | CONTINUITY OF CARE DOCUMENT ---
Author Name paola herbertdestiny Address Unknown Organization [facility] Address [address] [place] [address] Phone [phone] Care Team Providers Care Skills Auditor Name Role Phone Karel Cohen MD Unavailable [phone] MIRANDADENNIS PUCKETT Unavailable MIRANDA ANPBENDENNIS M Unavailable [phone] PROBLEMS Condition Status Date Provider Notes Cardiovascular screening active Karel feng MD Hypertriglyceridemia active Karel Cohen MD Diabetes mellitus, type 2 active Karel alonso MD HTN essential active Karel Cohen MD ENCOUNTERS Date Type Provider Location Encounter Diag nosis - In-person encounter Office Visit Karel Cohen MD [facility] - In-person encounter Office Visit Karel Cohen MD [facility] - In-person encounter Office Visit Karel Cohen MD [facility] Cardiovascular screeningHypertriglyceridemiaDiabetes mellitus, type 2HTN essential VITAL SIGNS Date Observation Value Provider Body Mass Index (Ratio) 24.67 kg/m2 John Cohen MD pulse rate 80 /min Debbie sanders oxygen saturation, oximetry 97 % Debbie Wilks blood pressure, diastolic 84 mm[Hg] Pio Wilks blood pressure, systolic 146 mm[Hg] Hank Wilks weight E&M 187 [lb_av] Debbie Adame s blood pressure, cuff size regular Pio Wilks height E&M 73 [in_i] Dbebie sanders Body Mass Index (Ratio) 25.06 kg/m2 John Cohen MD blood pressure, diastolic 98 mm[Hg] [facility] blood pressure, systolic 144 mm[Hg] [facility] oxygen saturation, oximetry 98 % [facility] pulse rate 77 /min [facility] respiratory rate E&M 12 /min [facility] weight E&M 190 [lb_av] [facility] height E&M 73 [in_i] [facility] blood pressure, cuff size regular [facility] Body Mass Index (Ratio) 24.96 kg/m2 John Cohen MD blood pressure, diastolic 93 mm[Hg] Burt rri [facility] blood pressure, systolic 153 mm[Hg] [facility], cuff size regular Ja [facility] oxygen saturation, oximetry 97 % [facility] respiratory rate E&M 18 /min [facility] pulse rate 88 /min [facility]agne weight E&M 189.2 [lb_av] [facility] [place] height E&M 73 [in_i] [facility] ALLERGIES No Known Drug Allergies RESULTS Date Observation Value Provider Reference Range Interpretation Location 1 C-reactive protein, by highly sensitive test 1.3 mg/L [facility] <1.0 High 1 LDL Size 206.8 [place] [facility] >222.9 Low 1 LDL particle concentration (lipoprotein panel), risk categories correspond to NCEP categories for LDL cholesterol (on a percentile equivalent basis) 1538 nmol/L [facility] <1138 High 1 cholesterol, non-HDL, total 145 MG/DL (CALC) [facility] <130 High 1 cholesterol/HDL ratio, serum, percent 4.4 calc [facility] <5.0 1 LDL cholesterol, serum 55 mg/dL [facility] <100 1 triglyceride, serum, fasting 449 mg/dL [facility] <150 High 1 HDL cholesterol, serum 43 mg/dL [facility] >39 1 cholesterol, serum 188 mg/dL [facility] <200 HISTORY OF MEDICATION USE Medication Status Instructions Dates Provider Indications Com ments plozasiran active Debbie Wilks losartan 50 mg tablet active Take 1 tablet by mouth once daily 4 Karel Cohen MD fenofibrate 54 mg tablet active Karel Cohen MD fenofibrate 50 mg capsule completed Take 1 capsule by mouth once a day - 4 Karel Cohen MD icosapent ethyl 1 gram capsule active TAKE 2 CAPSULES BY MOUTH TWICE A DAY Karel Cohen MD sertraline 25 mg tablet active Rosalio Champagne metformin (Glucophage XR) 500 mg tablet extended release 24 hr active Rosalio Champagne rosuvastatin 40 mg tablet active Take 1 tablet by mouth once daily Karel Cohen MD SOCIAL HISTORY Date Observation Value Provider smoking status Never smoker Karel waller MD smoking status Never smoker Keagan Connor smoking status Never smoker Karel waller MD number of grandchildren Karel Cohen MD INSURANCE PROVIDERS Payer name Policy type / Coverage type [place] red libertarian ID [employer] Commercial insurance company [id number] ADVANCE DIRECTIVES Name Date DISCUSSED - NO DECISION MADE TREATMENT PLAN Date Name Performer Cardiology:This visi t has been a part of the consistent, comprehensive, and ongoing management of the chronic medical condition(s) listed above for the patient. BP today: 146/84 P rior BP: 144/98 (01/14/2024) Labs Reviewed: C hol: 188 (12/13/2023) HDL: 43 (12/13/2023) LDL: 55 (12/13/2023) T (12/13/2023) His updated medication list for this problem includes: Losartan 50 Mg Tablet (Losartan) ..... Take 1 tablet by mouth once daily Karel Cohen MD Cardiology: H is updated medication list for this problem includes: Icosapent Ethyl 1 Gram Capsule (Icosapent ethyl) ..... Take 2 capsules by mouth twice a day Rosuvastatin 40 Mg Tablet (Rosuvastatin) ..... Take 1 tablet by mouth once daily Fenofibrate 54 Mg Tablet (Fenofibrate) Karel Cohen MD Cardiology: B P today: 144/98 P rior BP: 153/93 (11/26/2023) His updated medication list for this problem includes: Losartan 50 Mg Tablet (Losartan) ..... Take 1 tablet by mouth once daily Keagan Connor Cardiology: H is updated medication list for this problem includes: Icosapent Ethyl 1 Gram Capsule (Icosapent ethyl) ..... Take 2 capsules by mouth twice a day Rosuvastatin 40 Mg Tablet (Rosuvastatin) ..... Take 1 tablet by mouth once daily Fenofibrate 54 Mg Tablet (Fenofibrate) Keagan Connor Cardiology: H is updated medication list for this problem includes: Losartan 50 Mg Tablet (Losartan) ..... Take 1 tablet by mouth once daily Metformin (glucophage Xr) 500 Mg Tablet Extended Release 24 Hr (Metformin (glucophage xr)) Keagan Connor Cardiology: B P today: 153/93 His updated medication list for this problem includes: Losartan 50 Mg Tablet (Losartan) ..... Take 1 tablet by mouth once daily Karel Cohen MD Cardiology: H is updated medication list for this problem includes: Metformin (glucophage Xr) 500 Mg Tablet Extended Release 24 Hr (Metformin (glucophage xr)) Karel Cohen MD Cardiology: H is updated medication list for this problem includes: Icosapent Ethyl 1 Gram Capsule (Icosapent ethyl) ..... Take 2 capsules by mouth twice a day Rosuvastatin 40 Mg Tablet (Rosuvastatin) ..... Take 1 tablet by mouth once daily Fenofibrate 54 Mg Tablet (Fenofibrate) Karel Cohen MD Date Name CardioIQ Advanced Li pid Panel with Inflammation ([facility]) HISTORY OF PROCEDURES Procedure Date Procedure Name Provider Procedure Notes S tatus Complex e/m visit add on Karel Cohen MD completed Complex e/m visit add on Karel Cohen MD completed
--- OUTSIDE RECORDS SUMMARY | 2024-07-27 07:27 | XMS_ITS | Clinical Summary ---
Author Organization [facility] Address [address] [place] [address] Care Team Providers Care Stock Digger Name Role Phone Unknown, Provider Primary Care Provider Unavaila ble Source Comments [facility],non-owned Affiliates and Associated Physician Practices is amultiple site organization consisting of ambulatory clinics and hospital sitesin [place], [place], [place] and [place]. This disclosure is being madepursuant to the Care Everywhere program and may not contain all information available regarding this patient. Last updated 17.[facility] Medications * Be aware that medications may not be up to date on this document. Alwaysverify current medications with the patient. HYDROcodone-acet aminophen (NORCO) 5-325 MG tablet Take 1 Tab by mouth every 4 hours as needed for Pain 20 tablet 0 07/27/2015 Active Social History Tobacco Use Types Packs/Day Years Used Date Smoking Tobacco: Never Assessed Sex and Gender Information Value Date Recorded Sex Assigned at Not on file Legal Sex Male 12:35 AM CDT Gender Identity Not on file Sexual Orientation Not on file Last Filed Vital Signs Vital Sign Reading Time Taken Comments Blood Pressure 134/86 07/27/2015 2:44 AM CDT Pulse 66 07/27/2015 8:44 AM CDT Temperature 36.4 C (97.5 F) 07/27/2015 2:44 AM CDT Respiratory Rate 16 07/27/2015 2:44 AM CDT Oxygen Saturation 98% 07/27/2015 2:44 AM CDT Inhaled Oxygen Concentration - - Weight - - Height - - Body Mass Index - - Plan of Treatment Health Maintenance Due Date Last Done Comments COLOGUAJESUS ALBERTO (AGES 45-75) - COL ON CA SCREENING 1974 COLON MONITORING 1974 COLONOSCOPY - COLON CA SCREENING 1974 CT COLONOGRAPHY - COLON CA SCREENING 1974 Colorectal Cancer Screening 1974 FIT - COLON CA SCREENING 1974 FLEX SIG - COLON CA SCREENING 1974 LIPID TESTING 1974 HIV SCREENING 1989 HEPATITIS C SCREENING 09/11/1992 DTAP/TDAP/TD VACCINES (1 - Tdap) 1993 HEPATITIS B VACCINE (1 of 3 - 19+ 3-dose series) 1993 COVID-19 VACCINE ( - 2023-2 5 season) 2023 DEPRESSION SCREENING 02/13/2024 ZOSTER VACCINE (1 of 2) 2024 INFLUENZA VACCINE (Season Ended) 2024 HIB VACCINE Aged Out No longer eligi ble based on patient's age to complete this topic HPV VACCINE Aged Out No longer eligi ble based on patient's age to complete this topic MENINGOCOCCAL (Group B) VACC INE SHARED DECISION-MAKING Aged Out No longer eligibl e based on patient's age to complete this topic MENINGOCOCCAL GROUPS A/C/Y/W VACCINE Aged Out No longer eligible b ased on patient's age to complete this topic Care Teams Stock Digger Relationship Specialty Start Date End Date Unknown, Provider PCP - General 07/27/15
--- NOTE | 2024-07-27 07:33 | ED.GENADULT ---
HPI - General Adult General Chief complaint: Extremity Injury, Upper Stated complaint: fell on skateboard, injury to L. wrist Time Seen by Provider: 07/27/24 07:26 History of Present Illness HPI narrative: 48-year-old male presenting to the emergency department for evaluation for left wrist injury. Patient was riding a skateboard [place] and slept backward. Patient did land on his left hip and injured his left wrist. Patient denies striking his head denies any loss of consciousness. Patient states he does have a bruise to his left lateral hip, patient denies taking any blood thinners. Patient's primary complaint is left wrist pain. Patient does have prior history of a left wrist fracture and does have screws in place. Related Data Home Medications ?Medication ?Instructions ?Recorded ?Confirmed ?Last Taken ?Type metformin 500 mg tablet 500 mg PO DAILY 10/10/21 10/10/21 10/10/21 History rosuvastatin 40 mg tablet 40 mg PO DAILY 10/10/21 10/10/21 Unknown History Allergies Allergy/AdvReac Type Severity Reaction Status Date / Time No Known Allergies Allergy Verified 07/27/24 07:31 Review of Systems Review of Systems: All systems reviewed & are unremarkable except as noted in HPI and below PMFSH Past Medical History Medical History (Updated 07/27/24 @ 08:20 by Doron Ritter MD) Colon cancer screening High cholesterol Surgical History Surgical History (Updated 04/25/21 @ 14:30 by Esha Dangelo) H/O inguinal hernia repair left inguinal hernia repair w/mesh 03/23/21 History of removal of cyst 2010, [facility] History of surgery on wrist 2004, [facility] Family History Family History Father Liver failure Social History Social History Smoking status: Never smoker Tobacco type: cigarettes Alcohol intake: current Drinks per week: 4 Alcohol use details: Socially Substance use: never Substance use type: does not use Living arrangements: with family Spiritual care concerns: No Exam Narrative: APPEARANCE: Well appearing, no pain, no distress, well-nourished. HEAD: normocephalic, atraumatic. EYES: PERRLA/EOMI, conjunctivae clear. NOSE: Normal no drainage EARS:TMS clear with good light reflex. THROAT: Pharynx clear, no exudate. NECK: Supple. No adenopathy, no masses. RESPIRATORY: Airway patent, respirations nonlabored. Clear to auscultation bilaterally, no rales, rhonchi, wheezing. CARDIOVASCULAR: Regular rate and rhythm without murmurs rubs or gallops. ABDOMINAL: Soft, nontender, nondistended, normal bowel sounds MUSCULOSKELETAL: Left wrist tenderness to palpation with no deformity, neurovascularly intact NEURO: Alert. Cranial nerves II through XII intact. SKIN: Warm, dry. Normal Color Course Vital Signs Vital signs: Vital Signs Temperature 97.6 F 07/27/24 07:27 Pulse Rate 82 07/27/24 07:27 Respiratory Rate 17 07/27/24 07:27 Blood Pressure 159/96 H 07/27/24 07:27 Pulse Oximetry 97 07/27/24 07:27 Oxygen Delivery Room Air 07/27/24 07:27 Temperature 97.8 F 07/27/24 08:27 Pulse Rate 89 07/27/24 08:27 Respiratory Rate 17 07/27/24 08:27 Blood Pressure 150/87 H 07/27/24 08:27 Pulse Oximetry 99 07/27/24 08:27 Oxygen Delivery Room Air 07/27/24 07:27 Medical Decision Making MDM Narrative Medical decision making narrative: 48-year-old male presents emergency department for evaluation for left wrist pain after having a ground level fall. Patient's x-ray does show a radial styloid fracture on the left. No other fractures noted. Patient is neurovascularly intact. Patient was placed and a left-sided volar Orthoglass splint. Patient was provided a sling for comfort. Patient was advised the results was x-ray and on the treatment plan. Patient was provided follow-up with Orthopedics. All questions concerns were addressed patient was comfortable plan for discharge and close follow-up. Differential Diagnosis Differential Diagnosis: Wrist sprain, wrist fracture, wrist contusion Vital Signs Vital Signs: Vital Signs Temperature 97.6 F 07/27/24 07:27 Pulse Rate 82 07/27/24 07:27 Respiratory Rate 17 07/27/24 07:27 Blood Pressure 159/96 H 07/27/24 07:27 Pulse Oximetry 97 07/27/24 07:27 Oxygen Delivery Room Air 07/27/24 07:27 Temperature 97.8 F 07/27/24 08:27 Pulse Rate 89 07/27/24 08:27 Respiratory Rate 17 07/27/24 08:27 Blood Pressure 150/87 H 07/27/24 08:27 Pulse Oximetry 99 07/27/24 08:27 Oxygen Delivery Room Air 07/27/24 07:27 Imaging Data Radiologist's impression: Impressions Wrist X-Ray 07/27/24 07:52 Impression: Acute, essentially nondisplaced intra-articular fracture of the radial styloid process. Prior scaphoid ORIF. Mild degenerative changes, as above. Discharge Plan Discharge Clinical Impression: Closed fracture of radial styloid Patient Disposition: Home Condition: Stable Instructions: Antibiotic Form, How to Use a Sling (ED), Splint Care (ED) Additional Instructions: Tylenol and ibuprofen for pain control. Splint care as directed. Sling for comfort. Have close follow-up with Orthopedics. If you have any worsening symptoms then please call or return to the emergency department. Patient Language: Pashto Prescriptions: No Action metformin 500 mg Tablet 500 mg PO DAILY rosuvastatin 40 mg Tablet 40 mg PO DAILY Sutab 1.479-0.188- 0.225 gram tablet See Rx Instructions PO .COMPLEX Qty: 24 0RF Rx Instructions: Schedule with Dr. Mcmanus at [facility], 09/23/21 at 8:00am with a 6:30am arrival. Follow-up/Referrals: Britton Luna MD [Physician] - Jereímas,Melissa Flowers MD [Non-Staff] -
[2024-07-27 08:27] VITALS: BP 150/87; PULSE 89; RESP 17; TEMP 36.6; O2SAT 99
== END 2024-07-27 08:28 | disposition home or self-care (01) ==
PROVIDERS: Emergency Provider Emergency Medicine
DX: S52.515A Nondisplaced fracture of left radial styloid process, initial encounter for closed fracture (principal); E78.00 Pure hypercholesterolemia, unspecified; V00.131A Fall from skateboard, initial encounter; Y93.51 Activity, roller skating (inline) and skateboarding
CPT/HCPCS: 29125; 73110; 99284; A4565